=== PATIENT | female | born 1945 | race African-American/Black ===

== ENCOUNTER 2018-05-24 20:28 | Inpatient (IN) ==
--- NOTE | 2018-05-24 21:26 | Diag Imaging Result Doc PS360 ---
EXAM: CT HEAD W/O CONTRAST INDICATION: OLD INFARCT WITH DEFICIT OF LEFT NOW WITH NEW TECHNIQUE: This exam was performed using automated exposure control, adjustment of mA or kV according to patient size, and/or use of iterative reconstruction technique. COMPARISON: 05/23/2018 FINDINGS: There is stable multifocal encephalomalacia that is extensive in the right hemisphere. There is no definite acute infarct given the limited sensitivity of CT versus MRI. There is no discrete intracranial mass, mass effect, or intracranial hemorrhage. There is a stable right mastoid air cell effusion. Surrounding soft tissues and bony structures are essentially unremarkable, otherwise. IMPRESSION: Stable multifocal encephalomalacia that is severe on the right. No definite acute intracranial pathology by CT. Electronically signed by Papa Nolan 05/24/2018 9:24 PM
[2018-05-24 22:42] LABS: BASO# 0.01 X1000 (0.0-0.2); BASO% 0.1 % (0.0-0.8); EOS# 0.18 X1000 (0.0-0.7); EOS% 1.8 % (0.0-10.0); HEMATOCRIT 32.8 % (37.0-47.0); HEMOGLOBIN 10.6 g/dL (12.0-16.0); LYMPH# 2.24 X1000 (1.2-3.4); LYMPH% 22.8 % (20.5-51.1); MCHC 32.3 g/dL (33-37); MCV 89.6 FL (81-99); MONO# 1.23 X1000 (0.11-0.59); MONO% 12.5 % (1.7-9.3); MPV 10.7 FL (7.4-10.4); NEUT# 6.16 X1000 (1.4-6.5); NEUT% 62.8 % (42.2-75.2); PLT 265 X1000 (130-400); RBC 3.66 XMIL (4.2-5.4); RDW 12.8 % (11.5-14.5); WBC 9.82 X1000 (4.8-10.8)
[2018-05-24 22:50] LABS: INR 1.09
[2018-05-24 22:51] LABS: PTT 33.8 Seconds (22.3-41.8)
[2018-05-24 23:01] LABS: ALB/GLOB RATIO 1.2; ALBUMIN 3.6 g/dL (3.5-5.0); CALCIUM 9.2 mg/dL (8.8-10.2); CREATININE 3.3 mg/dL (0.5-0.9); POTASSIUM 3.9 mmol/L (3.5-5.1); TOTAL BILIRUBIN 0.31 mg/dL (0.20-1.00); TOTAL PROTEIN 6.7 g/dL (6.3-8.3)
[2018-05-24] MEDS ORDERED: NS 500 ML IV ONE (23:16)
[2018-05-25] MEDS ORDERED: ASPIRIN PR ONE (00:25)
--- NOTE | 2018-05-25 01:56 | PROVIDER DOCUMENTATION ---
This chart was entered by Pal Robert Scribe, acting as scribe for Hafsa Bryant DO. HPI-Neurological Disorder - General Chief Complaint: Altered Mental Status Stated Complaint: poss cva Time Seen by Provider: 05/24/18 20:54 Source: EMS Unable to obtain history due to:: altered Allergies/Adverse Reactions: Patient Allergies Allergy/AdvReac Type Severity Reaction Status Date / Time No Known Allergies Allergy Verified 01/16/14 11:12 Home Medications: Home Medication List Medication Instructions Recorded Confirmed Last Taken Type SIMVAstatin [Zocor] 20 mg PO HS 01/15/14 05/23/18 01/16/14 07:30 History Amlodipine [Norvasc] 5 mg PO DAILY #30 tab 02/22/17 05/23/18 Unknown Rx Estradiol Vaginal Cream [Estrace 1 applicator VAG DAILY 04/16/17 05/23/18 Unknown History Vaginal Cream] Losartan [Cozaar] 100 mg PO DAILY 04/16/17 05/23/18 Unknown History Metoprolol Succinate 1 tab PO DAILY 04/16/17 05/23/18 Unknown History Glimepiride 4 mg PO DAILY 05/30/17 05/23/18 Unknown History Levofloxacin [Levaquin] 750 mg PO DAILY 5 Days #5 tab 05/23/18 Unknown Rx - History of Present Illness-Neuro Nature of Presenting Problem: EMS reports pt has hx of 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 She was evaluated at that point for new onset R sided weakness and presumably has had another stroke. Per EMS the pt's family is concerned because of her R sided and generalized weakness and is requesting that she have an MRI. She is unable to answer questions except "yes" or "no". Severity: reports: mild Onset/Duration: reports: 2 days ago Timing: reports: still present Character of Altered Mental Status: reports: unchanged from baseline Any recent trauma/injury?: reports: none Character of Deficits: reports: new weakness (right side) New weakness or altered sensation location:: reports: RUE Cognitive Baseline: alert, oriented x3 Gait Baseline: unable to walk Review of Systems - Adult - REVIEW OF SYSTEMS - ADULT ROS:: unobtainable per condition Constitutional: denies: chills, fever Past History - Adult - PAST MEDICAL HISTORY-ADULT Review of Records: reports: Old Records Reviewed, Nursing Assessment Review, Medications Reviewed Major Childhood Illnesses: reports: denies history Cardiovascular: reports: HTN, hyperlipidemia Respiratory: reports: denies history Gastrointestinal: reports: denies history Obstetrical/Gynecological: reports: denies history Genitourinary: reports: denies history Musculoskeletal: reports: denies history Neurological: reports: denies history Endocrine/Immune: reports: Diabetes Other Conditions: reports: denies history - PRIOR SURGERIES/PROCEDURES Surgical/Procedure History: reports: none - IMMUNIZATION STATUS Childhood Immunizations: See Nurse Assessment Flu Vaccine: See Nurse Assessment - FAMILY HISTORY Family History: reviewed, not pertinent - SOCIAL HISTORY Smoking: non-smoker Living Situation: family Physical Exam- Neurological - Physical Exam-Neuro General Appearance: alert, no apparent distress Eye Exam: bilateral eye: normal inspection, PERRL HENMT: moist mucous membranes, normal ENT inspection, TMs normal, pharynx normal Head Injury: no evidence of injury. negative: active bleeding Neck: supple, normal inspection Respiratory: lungs clear, normal breath sounds, no pleuratic chest pain, no respiratory distress, no accessory muscle use Cardiovascular: normal peripheral pulses, regular rate, rhythm Abdominal Exam: non tender, soft Extremity: non-tender. 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 negative: normal speech Motor/Sensory: weak motor strength RUE, weak motor strength LUE, weak motor strength RLE, weak motor strength LLE Integumentary: normal color, normal turgor, warm/dry Psych/Mental Status: normal mood/affect, oriented x 3. negative: normal thought content, normal thought process Progress - PLAN OF CARE/RESULTS Progress/Plan/Lab Results: Vital Signs - 8 hr 05/24/18 21:41 05/24/18 21:49 05/24/18 21:50 Pulse Rate 99 H 97 H 94 H Respiratory Rate 34 H 25 H 22 Blood Pressure 143/90 O2 Sat by Pulse Oximetry 95 93 L 95 05/24/18 22:00 05/24/18 22:01 05/24/18 22:10 Pulse Rate 97 H 97 H 97 H Respiratory Rate 27 H 22 28 H Blood Pressure 146/98 O2 Sat by Pulse Oximetry 96 95 94 L 05/24/18 22:20 05/24/18 22:30 05/24/18 22:40 Pulse Rate 96 H 101 H 106 H Respiratory Rate 26 H 28 H 31 H Blood Pressure O2 Sat by Pulse Oximetry 96 95 97 05/24/18 22:50 05/24/18 23:00 05/24/18 23:01 Pulse Rate 102 H 104 H 105 H Respiratory Rate 28 H 30 H 27 H Blood Pressure 157/99 O2 Sat by Pulse Oximetry 96 95 94 L 05/24/18 23:10 05/24/18 23:20 05/24/18 23:30 Pulse Rate 105 H 103 H 104 H Respiratory Rate 19 12 26 H Blood Pressure O2 Sat by Pulse Oximetry 95 94 L 95 05/24/18 23:31 05/24/18 23:40 05/24/18 23:46 Pulse Rate 105 H 105 H 106 H Respiratory Rate 22 24 29 H Blood Pressure 155/102 155/102 O2 Sat by Pulse Oximetry 95 95 95 05/24/18 23:50 05/25/18 00:00 05/25/18 00:01 Pulse Rate 106 H 103 H 101 H Respiratory Rate 24 21 22 Blood Pressure 135/85 O2 Sat by Pulse Oximetry 95 95 94 L 05/25/18 00:10 05/25/18 00:20 05/25/18 00:30 Pulse Rate 101 H 101 H 101 H Respiratory Rate 24 23 27 H Blood Pressure O2 Sat by Pulse Oximetry 96 96 96 05/25/18 00:31 05/25/18 00:40 05/25/18 00:50 Pulse Rate 99 H 99 H 101 H Respiratory Rate 25 H 25 H 14 Blood Pressure 151/90 147/109 O2 Sat by Pulse Oximetry 96 96 93 L 05/25/18 01:00 05/25/18 01:01 05/25/18 01:10 Pulse Rate 90 90 87 Respiratory Rate 20 20 17 Blood Pressure 135/84 O2 Sat by Pulse Oximetry 96 96 96 05/25/18 01:20 Pulse Rate 95 H Respiratory Rate 25 H Blood Pressure O2 Sat by Pulse Oximetry 95 Laboratory Results - last 24 hr 05/24/18 05/24/18 05/24/18 21:52 22:20 22:20 WBC 9.82 RBC 3.66 L Hgb 10.6 L Hct 32.8 L MCV 89.6 MCH 29.0 MCHC 32.3 L RDW Std Deviation 12.8 Plt Count 265 MPV 10.7 H Immature Gran % (Auto) 0.0 Neut % (Auto) 62.8 Lymph % (Auto) 22.8 [place] % (Auto) 12.5 H Eos % (Auto) 1.8 Baso % (Auto) 0.1 Immature Gran # (Auto) 0.00 Neut # (Auto) 6.16 Lymph # (Auto) 2.24 [place] # (Auto) 1.23 H Eos # (Auto) 0.18 Baso # (Auto) 0.01 PT INR PTT (Actin FS) Sodium 147 H Potassium 3.9 Chloride 109 H Carbon Dioxide 23 L Anion Gap 15 BUN 37 H Creatinine 3.3 H Estimated GFR/1.73 m2 17 BUN/Creatinine Ratio 11 Glucose 103 POC Glucose 112 H Calculated Osmolality 301 Calcium 9.2 Total Bilirubin 0.31 AST 13 ALT 10 Alkaline Phosphatase 67 Troponin T Total Protein 6.7 Albumin 3.6 Globulin 3.1 Albumin/Globulin Ratio 1.2 05/24/18 05/24/18 22:20 22:20 WBC RBC Hgb Hct MCV MCH MCHC RDW Std Deviation Plt Count MPV Immature Gran % (Auto) Neut % (Auto) Lymph % (Auto) [place] % (Auto) Eos % (Auto) Baso % (Auto) Immature Gran # (Auto) Neut # (Auto) Lymph # (Auto) [place] # (Auto) Eos # (Auto) Baso # (Auto) PT 15.0 INR 1.09 PTT (Actin FS) 33.8 Sodium Potassium Chloride Carbon Dioxide Anion Gap BUN Creatinine Estimated GFR/1.73 m2 BUN/Creatinine Ratio Glucose POC Glucose Calculated Osmolality Calcium Total Bilirubin AST ALT Alkaline Phosphatase Troponin T 0.015 Total Protein Albumin Globulin Albumin/Globulin Ratio Orders Category Date Time Status Resuscitation Status Routine Care 05/25/18 00:33 Ordered Update & Confirm Home Medicati ROUTINE Care 05/25/18 00:[address] HEAD W/O CONTRAST [CT] Stat Exams 05/24/18 20:33 Completed CBC WITH ELECTRONIC DIFF [HEME] Stat Lab 05/24/18 22:20 Completed COMPREHENSIVE METABOLIC PANEL [CHEM] Stat Lab 05/24/18 22:20 Completed PROTIME WITH INR [COAG] Stat Lab 05/24/18 22:20 Completed PTT [COAG] Stat Lab 05/24/18 22:20 Completed TROPONIN T Stat Lab 05/24/18 22:20 Completed UA NIMS W/REFLEX CULT [URINALYSIS] Stat Lab 05/25/18 01:01 Ordered 0.9% Sodium Chloride Inj [Ns] 500 ml Med 05/24/18 23:16 Discontinued IV 999 mls/hr Aspirin Med 05/25/18 00:25 Discontinued 300 mg IN NOW ONE EKG [EKG] Stat Ther 05/24/18 21:03 Ordered Transfer/Admit Order [TRANSFER] Routine Transfer 05/25/18 00:27 Ordered Result Diagrams: 05/24/18 22:20 05/24/18 22:20 - EKG 1 Time of EKG reading by physician:: 21:13 EKG Read and Signed by:: Pal Pereyra EKG Interpretation (*Must complete 3 of following elements*): Abnormal Rate: 99 Rhythm: NSR QRS: LVH (with repolarization abnormalities) - CT/MRI 1 CT Study: Head Impression: Abnormal (EXAM: CT HEAD W/O CONTRAST INDICATION: OLD INFARCT WITH DEFICIT OF LEFT NOW WITH NEW TECHNIQUE: This exam was performed using automated exposure control, adjustment of mA or kV according to patient size, and/or use of iterative reconstruction technique. COMPARISON: 05/23/2018 FINDINGS: There is stable multifocal encephalomalacia that is extensive in the right hemisphere. There is no definite acute infarct given the limited sensitivity of CT versus MRI. There is no discrete intracranial mass, mass effect, or intracranial hemorrhage. There is a stable right mastoid air cell effusion. Surrounding soft tissues and bony structures are essentially unremarkable, otherwise. IMPRESSION: Stable multifocal encephalomalacia that is severe on the right. No definite acute intracranial pathology by CT. Electronically signed by Papa Nolan 05/24/2018 9:24 PM), See EMR Report Comparison with other Films: no changes (05/23/18) Departure - Departure This chart was documented by the indicated scribe, (Pal Robert Scribe) and accurately reflects the services I performed and decisions made by , Hafsa Bryant DO, as attested by the provider's signature.
[2018-05-25] MEDS ORDERED: TYLENOL PR PRN (02:22)
[2018-05-25 03:12] LABS: URINE SOURCE CATH
[2018-05-25 03:14] LABS: BILIRUBIN URINE NEGATIVE (NEGATIVE); BLOOD URINE MODERATE (NEGATIVE); COLOR YELLOW; GLUCOSE URINE NEGATIVE (NEGATIVE); KETONE URINE NEGATIVE (NEGATIVE); LEUKOCYTES URINE MODERATE (NEGATIVE); NITRITE URINE NEGATIVE (NEGATIVE); PROTEIN URINE 50 mg/dL (NEGATIVE); SP GRAVITY URINE 1.008; TURBIDITY URINE CLEAR (CLEAR); UROBILINOGEN URINE NORMAL (NORMAL)
[2018-05-25 03:16] LABS: UR EPITHELIAL CELLS <10 /HPF (<10); URINE BACTERIA NEGATIVE /HPF; URINE RBC <10 /HPF (<10)
[2018-05-25] MEDS ORDERED: ROCEPHIN 1 GM in NS 50 ML IV SCH (04:30)
[2018-05-25] MEDS: PROTONIX IV SCH (04:42)
[2018-05-25] MEDS: NS 1,000 ML IV SCH ×3 (04:43→18:58)
[2018-05-25] MEDS: ROCEPHIN 1 GM in NS 50 ML IV SCH (06:00)
--- NOTE | 2018-05-25 07:02 | HISTORY AND PHYSICAL ---
ADDENDUM PRIMARY CARE PHYSICIAN: Russell Mccord MD PLAN: Plan was discussed with MEDICAL SUPPORT ASSISTANT at bedside. HISTORY OF PRESENT ILLNESS: Ms. 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 Brought in yesterday with a questionable right-sided weakness. CT scan at that time was negative. Brought in again today because of progression of the right-sided weakness. When I went and evaluated the patient she was somewhat aphasic and required a lot of prompting to even say the names of her daughters. She would follow basic commands, but that was pretty much the limits of her ability to cooperate. PHYSICAL EXAMINATION: NEUROLOGIC: Notable for 2/4 power on both sides, i.e. left and right sides. She had somewhat of a flat affect. Patient is not verbal. She is only able to enunciate her 2 daughters' names at bedside, but that is about it. She will open her eyes when her name is called. CARDIORESPIRATORY EXAM: Notable for 3/6 systolic murmur with no particular radiation. Family tells me that this is old. ASSESSMENT AND PLAN: My assessment is that this patient probably has had a sudden recurrent stroke, now on the right side. This could also represent a possible embolic cerebrovascular accident, although not picked up by the CT scan done today. I recommend an MRI to confirm the possibility of an embolic cerebrovascular accident in multiple cerebral lobes or in the cerebellum. In this case, anticoagulation will be an option for now. The patient was not on antiplatelet therapy. There was no record that she was on aspirin or Plavix, and the family was not aware of this. I do surmise that it is possible that the patient may have been on these antiplatelet therapies in the past, but for some medical reason they may have been stopped. Family denies any bleeding. We will cautiously start her on aspirin rectally. Of note, also her BUN and creatinine are elevated which would suggest that her oral intake has declined. This is further buttressed by the fact that her sodium is elevated, and we will start her on normal saline. The rest of the plan of care was discussed with the nurse practitioner. Once the patient can have oral intake, high dose statins should be entertained. Echocardiogram, MRI and carotid Doppler studies will be ordered. Neurology, Speech Therapy and Physical Therapy consults will also be obtained. cc: Lupe Aranda MD
--- NOTE | 2018-05-25 07:37 | EKG Report ---
Test Performed on : 05/24/2018 9:31:28 PM Test Reason : weakness. Blood Pressure : / mmHG Vent. Rate : 099 BPM Atrial Rate : 099 BPM P-R Int : 120 ms QRS Dur : 082 ms QT Int : 380 ms P-R-T Axes : 034 002 097 degrees QTc Int : 487 ms Normal sinus rhythm. Left ventricular hypertrophy with repolarization abnormality Abnormal ECG When compared with ECG of 30-MAY-2017 16:09, No significant change was found Unconfirmed Result
[2018-05-25 07:39] LABS: BASO# 0.02 X1000 (0.0-0.2); BASO% 0.3 % (0.0-0.8); EOS# 0.15 X1000 (0.0-0.7); EOS% 1.9 % (0.0-10.0); HEMATOCRIT 31.8 % (37.0-47.0); HEMOGLOBIN 10.2 g/dL (12.0-16.0); LYMPH# 2.02 X1000 (1.2-3.4); LYMPH% 25.3 % (20.5-51.1); MCH 29.1 PG (27-31); MCHC 32.1 g/dL (33-37); MCV 90.9 FL (81-99); MONO# 1.16 X1000 (0.11-0.59); MONO% 14.5 % (1.7-9.3); MPV 10.9 FL (7.4-10.4); NEUT# 4.65 X1000 (1.4-6.5); PLT 240 X1000 (130-400); RDW 12.9 % (11.5-14.5)
--- NOTE | 2018-05-25 08:22 | HISTORY AND PHYSICAL ---
PRIMARY CARE PROVIDER: Dr. Last at [facility]. CHIEF COMPLAINT: Stroke-like symptoms. Altered mental status. HISTORY OF PRESENT ILLNESS: Ms. Florence is a 73-year-old, -Nepalese female, who was previously seen in our emergency department early Thursday morning. At that time, it was reported that she was having some increased weakness, confusion, and was nonverbal at the time of her visit in the ER. She was diagnosed with a urinary tract infection. She was given a prescription for Levaquin and discharged back to the residential. The patient's family stated that since returning to the residential that the patient has had worsening symptoms. That her confusion has worsened. She is having periods of aphasia at times. She is having new onset right-sided weakness with motor control. And has not been eating or drinking. I did have her brought back to the ER for further evaluation. The patient was able to tell us her name and she did tell us her daughter's name who is present at the bedside. Though she thought she was still at the residential and thought the month was April of 2018. She was able to answer some simple questions by nodding her head Yes or No. She did state that her stomach did hurt, though other than this did not and has not been able to report any other symptoms. Upon evaluation in the ER, the patient's CT of the head without contrast though the radiologist noted that there was stable multifocal encephalomalacia that is severe on the right, though no definite acute intracranial pathology. It does appear the patient is a little dehydrated. She does have some chronic kidney disease though at this time her creatinine is 3.3 where normally her baseline is anywhere from 1.8 to 2. Her urinalysis is still showing some blood as well as moderate leukocytes and 10-20 WBC. EKG performed in the ER did show normal sinus rhythm with a left ventricular hypertrophy at a rate of 99 with a QTc of 487. At this time, given the patient's worsening symptoms she will be admitted for further treatment and evaluation of a CVA. REVIEW OF SYSTEMS: Unfortunately at this time due to the patient's current condition and mentation, a complete review of systems was unable to be performed. PAST MEDICAL HISTORY: 1. History of previous CVAs for which she initially did have a right-sided stroke that affected her right side. The patient's family stated that normally she is not able to move her left side at all, though the patient did have some movement in her left arm and leg during our examination. 2. Hypertension. 3. Dyslipidemia. 4. Diabetes mellitus type 2. 5. Pseudobulbar affect. 6. COPD. 7. Asthma. 8. Vascular dementia without behavioral disturbance. 9. Dysphasia. PAST SURGICAL HISTORY: Patient has no known history of previous surgeries. SOCIAL HISTORY: The patient is a former smoker. Her family states that she quit smoking approximately [id number] and has been given a nicotine patch. There is no known alcohol or illicit drug use. She is a permanent resident at [facility]. She does normally get around in a wheelchair and according to her family able to have minimal assistance when transferring from the bed to the wheelchair. FAMILY HISTORY: Her mother, father, brother and sisters all have a history of having strokes, diabetes mellitus and hypertension. ALLERGIES: The patient has no known allergies. HOME MEDICATIONS: The patient's home medication list has not been reconciled and placed in the computer though according to her residential EMR that was sent with her she takes: 1. Amlodipine 5 mg tablet one p.o. daily. 2. Colace 100 mg one p.o. b.i.d. 3. Depakote Sprinkles capsule delayed release 125 mg one capsule b.i.d. 4. Dextromethorphan and quinidine one capsule by mouth b.i.d. for pseudobulbar affect. 5. Flonase one spray in each nostril b.i.d. 6. Levaquin one tablet p.o. daily for a UTI. This was just prescribed on 05/23/2018. 7. Losartan 100 mg one tablet p.o. daily. 8. Metoprolol succinate extended release 50 mg one tablet p.o. daily. 9. MiraLAX powder 17 g by mouth once daily for constipation. 10.Nicotine patch q.24 hours 14 mg transdermally. 11.Probiotic one capsule by mouth in the evening. 12.Sennosides-Docusate Sodium tablet 8.6-50 mg one tablet p.o. daily. 13.Simvastatin 20 mg one tablet p.o. at bedtime. 14.Tylenol 1000 mg p.o. q.8 hours for pain. 15.Zoloft 50 mg one tablet p.o. daily. DIAGNOSTIC DATA/LABORATORY RESULTS: 1. White blood cell count is 9.82, hemoglobin 10.6, hematocrit 32.8, platelet count 265,000. 2. PT 15, INR 1.09, PTT 33.8. 3. Sodium 147, potassium 3.9, chloride 109, serum bicarb is 23, BUN 37, creatinine 3.3 with a GFR of 17, glucose 103, calcium 9.2. 4. Liver function tests within normal limits. 5. Troponin 0.015. 6. Urinalysis was obtained via catheter and positive for protein, moderate blood, leukocytes, and 10-20 white blood cells. 7. EKG showed normal sinus rhythm with left ventricular hypertrophy at rate of 99 with a QTc of 487. 8. CT of the head without contrast showed stable multifocal and encephalomalacia that is severe on the right though there was no definite acute intracranial pathology noted. 9. Chest x-ray one view was performed on 05/23/2018 which showed no acute abnormalities. PHYSICAL EXAM: VITAL SIGNS: Temperature 98.1 degrees Fahrenheit, heart rate 99, respirations 20, blood pressure 151/90. Oxygen saturation is 96% on room air. GENERAL: Ms. Florence is an elderly, 73-year-old, -N[place]alese female. She was resting on the ER stretcher. She was in no acute distress. She is awake and alert and oriented to person. HEENT: Head is normocephalic and atraumatic. Pupils are equal, round and reactive to light were 3 mL bilaterally and brisk. Oral mucosa is slightly dry. Oropharynx is clear. NECK: Supple. Trachea is midline. No carotid bruits noted. CARDIOVASCULAR: The patient has S1, S2 noted. There is a murmur present as well. There are no other gallops or rubs appreciated. PULMONARY: The patient has symmetrical chest expansion bilaterally. Lungs clear to auscultation in bilateral full griffin. ABDOMEN: Soft, nondistended. The patient did not have any facial grimacing, guarding, or localization of pain upon palpation. Bowel sounds were present in all four quadrants and normoactive. EXTREMITIES: No cyanosis or edema noted. Radial pulse and pedal pulses were 2+ bilaterally. INTEGUMENTARY: The patient's skin color is normal for her race. It is dry and intact. NEUROLOGIC: The patient is alert and oriented to person only at this time. She though that she was at [facility] and that it was April 2018. The patient has been experiencing some asphasia, though this does seem transient. She was able to answer some questions by shaking her head Yes or No. Though other than this is not able to communicate much. She is able to follow some simple commands. The patient does have movement noted in all extremities, though normally her family states that she has paralysis on the left, though at this time she does have some movement noted to her left upper and lower extremities. The patient does have limited movement noted on the right. She was able to squeeze my hand with her right hand but not her left. Though other than this her neurologic exam at this time is slightly limited due to her current condition and mentation. ASSESSMENT AND PLAN: 1. Cerebrovascular accident. The patient does have a history of having hemiplegia and hemiparesis following cerebral infarction affecting her left nondominant side. Though at this time she does appear to have some movement in her left upper and lower extremities. The patient family states this is of new onset. Normally the patient's good side is her right side, which she is now having difficulty with weakness and movement in her right upper and lower extremities. She has also been having periods of aphasia and is only alert and oriented to person at this time. We have placed orders for the patient to receive an MRI of the brain without contrast in the morning. We have ordered carotid ultrasound as well as an echocardiogram. We will perform a lipid profile in the morning as well. We will place a consult with Neurology and we will await their evaluation and further recommendations for management. We will place her on continuous cardiac telemetry. We will do frequent vital signs and neuro checks. She will be placed on aspiration precautions. The patient will be N.P.O. until swallow evaluation has been performed. And we will monitor her neurologic status closely. 2. Fluid volume depletion. This is likely secondary to the patient's change in mentation. And her family reported that she had not been eating and drinking at the residential. We will provide some gentle fluid hydration with normal saline at 85 mL/h. We will continue to follow. 3. Acute on chronic kidney disease. The patient does appear to have baseline creatinine of 1.8 to 2. At this time, her creatinine is 3.3. This is likely secondary to her fluid volume depletion. We will continue with fluid replenishment as mentioned above. We with avoid nephrotoxic medications and mainly dose medicines as necessary. 4. Urinary tract infection. The patient was given a prescription for Levaquin though at this time we are not sure this has been started. We will place her with antibiotics coverage. A urine culture has been ordered. We will await those results and continue to follow. 5. Hypertension. At this time, given the patient's possible CVA, we will allow for some permissive hypertension. We will closely monitor and implement antihypertensives if necessary. 6. Dyslipidemia. We will continue the patient's atorvastatin, though at this time she is N.P.O. until a swallowing screen is performed. 7. Diabetes mellitus type 2. Given that the patient is N.P.O. and has not been eating and drinking, we will hold her diabetic medications. We will monitor her finger-stick blood sugars closely every four hours. 8. Deep venous thrombosis prophylaxis. She has been provided with SCDs. The patient has been placed on the Medical floor with telemetry. She will have vital signs and neuro checks q.4 hours. We will do strict intake and output. She will be N.P.O. until a swallow evaluation is performed. We will repeat a CBC and CMP in the morning, as well as series of troponins. The patient's troponin was a little elevated at 0.015 though she does have an acute kidney injury present. She had not reported any chest pain, though we will continue to monitor this. Further orders and recommendations pending hospital course, diagnostic studies and physician evaluation. Dictated by RAMON Alvarez for Lupe Aradna MD cc: Lupe Aranda MD [facility].
[2018-05-25 08:23] LABS: ALBUMIN 3.4 g/dL (3.5-5.0); CALCIUM 8.4 mg/dL (8.8-10.2); POTASSIUM 3.6 mmol/L (3.5-5.1); TOTAL BILIRUBIN 0.41 mg/dL (0.20-1.00); TOTAL PROTEIN 6.8 g/dL (6.3-8.3)
--- NOTE | 2018-05-25 12:57 | Diag Imaging Result Doc PS360 ---
EXAM: MRI BRAIN W/O CONTRAST 05/25/2018 HISTORY: CVA TECHNIQUE: T1 sagittal, T1 axial, T2, FLAIR, DWI axial and coronal gradient echo. COMMENT: There is patchy restricted diffusion in the cortex and subcortical white matter in the watershed zone of the posterior and mid left hemisphere as well as in the posterior subcortical white matter of the right parietal lobe. There is extensive increased T2-weighted signal intensity throughout much of the posterior right hemisphere including the occipital lobe and portions of the temporal posterior frontal and parietal lobes. There is patchy increased T2-weighted signal intensity in the portions of the left hemisphere described above. There are old lacunae present in the turner radiata region on the right and the external capsule anteriorly and superiorly on the left. There is no evidence of bleed or abnormal extra-axial fluid collection. Compared to the previous examination of 04/16/2017 the encephalomalacic changes on the right are worse and the diffusion abnormalities on the left were not present previously. The subdural hematoma which was present at the time the previous study is no longer visible. There is hemosiderin deposition in the basal ganglia as there was previously. There is some apparent deposition in the parietal subcutaneous cortical white matter which is not appreciable on the previous study. This may be due to petechial hemorrhage in the infarct zone. IMPRESSION: Multiple small foci of infarction in the cortex and subcortical zones of both parietal lobes as described. Given the bilateral distribution, the possibility of emboli from the aorta or heart should be considered. This report was discussed with Carltoa on 05/25/2018 at 1255 and was readback. Electronically signed by Vaughn Quintanilla 05/25/2018 12:55 PM
--- NOTE | 2018-05-25 14:34 | CONSULTATION ---
DATE OF CONSULTATION: 05/25/2018 HISTORY OF PRESENT ILLNESS: Ms. Florence is 73 years old, and there is imaging evidence of recent dominant left hemisphere infarction superimposed on old ischemic changes in the right hemisphere. There is question of some extension or enlargement of the old right hemisphere ischemic change compared to prior scan. I have reviewed the notes sent from [facility], which consist mainly of the emergency room record here a few days ago. There is apparent past history of stroke causing chronic left hemiplegia, which has been significant and not changed recently. She seemed different neurologically a few days ago and was brought for evaluation. There was question of dysphasia which would be new and right hemiparesis which would be new. There was not report of altered awareness or unconsciousness. There was not report of headache. Brain MRI done without contrast showed old right parietal changes which were more prominent than on April 2017 scan and there is small area of restricted diffusion on the right on today's scan. The MRI scan today also showed left parietal white matter changes with restricted diffusion. There were prior brain MRI scans done without contrast 04/16/2017 and 01/17/2014. The 07/2017 brain MRA reported motion artifact and raised question of posterior cerebral and middle cerebral stenoses bilaterally. Cervical MRA same date was unremarkable. MEDICATION: Home medicine list includes divalproex, Nuedexta, sertraline, several others. VITAL SIGNS: She has been afebrile this admission. Systolic blood pressures have ranged 130s to 160. PHYSICAL EXAMINATION: On exam, Ms. Florence is supine, awake, alert, attentive. She had some appropriate conversation with me. She had some pauses and hesitations consistent with word- finding problems. On bedside language testing, she had difficulty with commands requiring right/left distinction, digit distinction, calculation. She did well with simple naming, but had a little bit of trouble naming parts of objects. She did well with simple repeating, but had trouble repeating pronouns. She did not name the President correctly. She did not identify the hospital correctly by name. Speech is not significantly dysarthric. She has full right visual field and counted fingers in the right field consistently correctly. On the left, responses were much more inconsistent. Facial motility is diminished bilaterally. Left nasolabial fold is less prominent than the right. Tongue is midline. Gag is intact. She has apparent chronic paralysis of the left arm with discomfort on passive left wrist and finger extension. She moved her left leg minimally. There was more brisk left leg movement in withdrawal from noxious stimulation. She used her right arm purposefully. Tone is increased in the right arm. She did rapid alternating movements very, very slowly with the right hand. She was not able to bring right finger to nose. She reports good pinprick and light touch appreciation over the right hand compared to the left but responses were inconsistent on further testing of sensation over the limbs. I did not test her gait. Plantar response is extensor bilaterally. DIAGNOSTIC STUDIES: Lab work this admission shows anemia, mildly elevated BUN and creatinine, mildly elevated blood sugar. Echocardiogram is ordered. IMPRESSION: 1. Apparent moderate right hemiparesis and mild dysphasia. These are reported to be new deficits, consistent with the MRI evidence of restricted diffusion and acute ischemic change in the dominant left hemisphere. 2. There is left hemiplegia, which appears to be old. I do not think that has changed significantly from baseline. The imaging findings are noted, and the area of restricted diffusion in the right hemisphere is small, consistent with acute right hemisphere infarction. The much larger area of encephalomalacia in the right hemisphere appears to be old, some posterior changes present since stroke about 13 months ago, and some parietal encephalomalacia apparently developing after the event 13 months ago, but also old now. 3. I suspect she has a baseline cognitive impairment. She has risk factors for vascular dementia. I do not see cholinesterase inhibitor or memantine on current medicine list. I do not know if these have been tried in the past or not. 4. Some concern for prolonged QT with combination of sertraline and quinidine component of Nuedexta. Also some concern for serotonin syndrome with sertraline and dextromethorphan component of Nuedexta. I do not know how long she has been taking Nuedexta. These potential medication interactions are relatively low worry. Further plans will depend on her clinical course and echocardiogram report. I do not have any urgent suggestion from neurologic standpoint right now. Vascular status is likely not a lot different since the cervical and brain MRA scans done 13 months ago, but we might repeat vascular imaging for update. I would not recommend CT angiogram because of her recently slightly worsened renal function. We can manage with ultrasound, MRA, or wait until renal function improves and consider CTA. Thanks for asking Neurology to see Ms. Florence. cc: Susana Pham III, MD MTDD
--- NOTE | 2018-05-25 16:50 | PROGRESS NOTE ---
DATE: 05/25/2018 Ms. Florence presented on 05/25/2018. Patient of Dr. Mccord. SUBJECTIVE: A 73-year-old recently with CVAs in the right cerebral hemisphere. She has resultant left-sided hemiparesis for a year. Brought in yesterday with questionable right -sided weakness. CT scan at that time was negative. Brought in again with progressive right- sided weakness. When evaluated the patient was somewhat aphasic, required a lot of prompting to say names of her daughters. She would follow basic commands but pretty much limits her ability to cooperate. The patient had an MRI today, multiple small foci, infarction in the cortex and subcortical zones, both parietal lobes described given the bilateral distribution, possibility of emboli from heart should be considered. On exam today she seems to be doing better. They did do an echocardiogram; results are pending. OBJECTIVE: Vital signs: She remains afebrile. Pulse 99, respirations 22, blood pressure 138/76. HEENT: Pupils are equal and round. Lungs: Clear in all lung griffin. Cardiovascular: Regular rhythm and rate without murmur or S3. Abdomen: Soft. Skin: Warm and dry. LABORATORY: Review of lab from yesterday and this morning, white count 8,000, hematocrit 31, platelet count 240,000. Chemistries: Sodium 147, potassium 3.6, chloride 110, BUN 34, creatinine 3.0. Creatinine was 3.4 when she presented. ASSESSMENT AND PLAN: 1. Apparent moderate right hemiparesis, some mild dysphagia. These are reported to be new deficits, consistent with MRI evidence of restricted diffusion or acute ischemic change in the dominant left hemisphere. 2. Left hemiplegia which apparently is old. Dr. Pham has evaluated and does not feel like that has changed from baseline. There are areas of restricted diffusion in the right hemisphere but these areas are small, consistent with acute right hemisphere infarction. Much larger area of encephalomalacia in the right hemisphere, appears to be old. Some posterior changes present since a stroke about 13 months ago and some parietal encephalomalacia apparently developed after the event 13 months ago. 3. There is a suspicion of cognitive impairment and probably multi-infarct component as well. 4. There is some concern about prolonged QT on the EKG. She is on sertraline and quinidine which is a component of the Nuedexta. Concern for serotonin syndrome from sertraline and dextromethorphan component of Nuedexta. Not sure how long she has been taking the Nuedexta. We are holding the Nuedexta right now. We are giving her some ceftriaxone 1 g q.24 hours, aspirin 300 mg a day. 5. Feel that she had some fluid volume depletion when she presented and so we have given her some fluid. 6. She had acute on chronic kidney disease. Baseline creatinine is 1.8. She is at 3.3, so will see if we can improve on that. 7. We are treating for a urinary tract infection. The patient had a prescription for Levaquin but I do not think that was started, so she is on ceftriaxone. 8. Diabetes mellitus type 2. We will follow her pattern sugars. cc: Alvarado Olvera MD MTDD
--- NOTE | 2018-05-25 17:33 | ECHO REPORT ---
ORDER DATE: 05/25/2018 INDICATION: A 73-year-old female with a stroke, heart murmur. M-MODE MEASUREMENTS: Left ventricle end diastole: 3.4. Left ventricle end systole: 1.7. Posterior wall: 1.3. Interventricular septum: 2.1. Left atrium: 3.2. Aortic root: 2.6. SUMMARY OF 2-DIMENSIONAL IMAGIN. Left ventricular function shows a hyperdynamic left ventricle. There is also asymmetric hypertrophy of the left ventricle. The ejection fraction is 75% to 80%. 2. There is evidence of systolic anterior motion of the mitral valve with a gradient measured up to 31 mmHg across the outflow tract of the left ventricle. 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 3. Pulsed wave Doppler of mitral inflow shows reversal of the E/A ratio. 4. Tissue Doppler of septal and lateral mitral annulus averages 5 cm, indicating impairment of ventricular relaxation. That is also consistent with hypertrophic cardiomyopathy. 5. The aortic valve opens normally. There is no aortic stenosis. Color flow mapping is really unremarkable. There may be a trivial degree of aortic regurgitation. 6. The pulmonic valve is unremarkable. 7. The tricuspid valve shows a mild degree of regurgitation. Pulmonary pressure estimated at 20 mmHg. 8. There is no pericardial effusion. No masses, no thrombus. 9. The left atrium appears to be moderately enlarged. SUMMARY: This study shows: 1. Hyperdynamic left ventricle with asymmetric hypertrophy of the interventricular septum with systolic anterior motion of the mitral valve and a maximum gradient of 31 mmHg across the outflow tract of the left ventricle, suggesting that this is a case of obstructive hypertrophic cardiomyopathy of at least mild degree. 2 The aortic valve shows no evidence of any significant abnormality. 3. The mitral valve is unremarkable. 4. There is impaired left ventricular relaxation/early diastolic dysfunction. 5. Pulmonary pressure is normal. Clinical correlation is strongly recommended. cc: Riaz Whiting MD
--- NOTE | 2018-05-25 18:21 | Carotid Study ---
DATE: 05/25/2018 PROCEDURE: Carotid duplex study. REFERRING PHYSICIAN: Dr. Aranda. INTERPRETING PHYSICIAN: Dr. Grant Cleveland. TECH: Jake. INDICATIONS: Stroke. OBSERVED DATA RIGHT LEFT Brachial Blood Pressure Carotid Pulse Bruits: Carotid/Sub DIAGRAM OF ULTRASOUND IMAGING R L RIGHT INT EXT INT EXT LEFT Stevie (cm/s) Stevie (cm/s) Subclavian 55/5 Subclavian 105/7 CCA Proximal 36/5 CCA Proximal 45/10 CCA Distal 23/6 CCA Distal 35/11 Bulb 36/4 Bulb 31/9 ICA Proximal 18/10 ICA Proximal 18/10 ICA Mid 43/15 ICA Mid 31/20 ICA Distal 42/17 ICA Distal 53/30 ECA 49/6 ECA 41/5 Vertebral 78/19 Vertebral 30/13 ICA/CCA Ratio 1.2 ICA/CCA Ratio 1.2 % Stenosis 0-39% % Stenosis 0-39% FINDINGS: There is mild bilateral plaque of the carotid bulbs without a hemodynamically significant stenosis. There is antegrade vertebral flow bilaterally. PHYSICIAN INTERPRETATION: Unremarkable carotid imaging study. This is unchanged from the prior study on 01/16/2014. cc: Grant Cleveland MD
[2018-05-25] MEDS: ZOFRAN IV PRN (20:57)
[2018-05-26] MEDS: ASPIRIN PR SCH (01:46)
[2018-05-26] MEDS: ROCEPHIN 1 GM in NS 50 ML IV SCH (05:30)
[2018-05-26] MEDS: PROTONIX IV SCH (05:30)
--- NOTE | 2018-05-26 11:33 | PROGRESS NOTE ---
DATE: 05/26/2018 SUBJECTIVE: Ms. Florence reports no headache and no new problems. Her echocardiogram showed no thrombus. OBJECTIVE: On exam, she continues awake and alert. She is attentive. Speech is not significantly dysarthric, but she has occasional word-finding problems. She has increased tone and paralysis in the left arm, no change since yesterday. In the right arm, tone is increased and she did rapid alternating movements very slowly with the right arm. She was very slow with right [id number] and did not complete that. She reports good light touch and pinprick appreciation over the right hand. IMPRESSION: 1. New right hemiparesis and mild dysphasia. Clinically, deficit seems stable compared to yesterday. 2. Old left hemiplegia with MRI findings as reviewed. 3. Reported baseline cognitive impairment. I think this contributes significantly to her difficulty with communication and her ability to provide history. Dementia also would be a significant factor in considering management of acute stroke, favoring more conservative management. I would continue aspirin, continue permitting moderate hypertension for another day or so, resume statin unless there is a medical contraindication. Thanks for asking Neurology to see Ms. Florence. cc: Susana Pham III, MD [facility]
--- NOTE | 2018-05-26 14:10 | PROGRESS NOTE ---
DATE: 05/26/2018 SUBJECTIVE: Ms. Florence is feeling better. A little stronger. She is awake and alert. No complaints of pain. OBJECTIVE: Vital Signs: Remains afebrile. Temperature 97.9, pulse 89, respirations 18, blood pressure 150/91. Eyes: Pupils are equal and round. Lungs: Clear in all lung griffin. Cardiovascular: Regular rhythm and rate without murmur or S3. Abdomen: Soft. Skin: Warm and dry. DIAGNOSTICS: Urine output 720 mL. Blood sugars 144, 106, 230. ASSESSMENT/PLAN: 1. New right hemiparesis, mild dysphagia. Clinically appears to be stable. 2. Old left hemiplegia. MRI findings were reviewed. Dr. Pham following. 3. Report of baseline cognitive impairment. Dr. Pham feels this contributes to her trouble with communication. So, continue conservative adjuvant treatment. Continue aspirin, permitting moderate hypertension. 4. Diabetes mellitus type 2. Sugars appear under fairly good control. 5. She presented with some fluid volume depletion. 6. Acute on chronic kidney disease. Note that creatinine is down to 3.0. We will check another creatinine tomorrow. 7. Check another CBC. She has normocytic anemia as well that we are following. 8. She is a long-term resident at [facility]. So, I would like her renal function to improve a little more and hopefully we can get her back to [facility] by the end of the week. cc: Alvarado Olvera MD
[2018-05-27] MEDS: ASPIRIN PR SCH (00:11)
[2018-05-27] MEDS: PROTONIX IV SCH (04:59)
[2018-05-27] MEDS: SODIUM CHLORIDE 0.9% INJ SCH (04:59)
[2018-05-27] MEDS: ROCEPHIN 1 GM in NS 50 ML IV SCH (04:59)
[2018-05-27 07:41] LABS: BASO# 0.02 X1000 (0.0-0.2); BASO% 0.3 % (0.0-0.8); EOS# 0.34 X1000 (0.0-0.7); EOS% 4.3 % (0.0-10.0); HEMATOCRIT 32.6 % (37.0-47.0); HEMOGLOBIN 10.6 g/dL (12.0-16.0); LYMPH% 22.6 % (20.5-51.1); MCH 29.3 PG (27-31); MCHC 32.5 g/dL (33-37); MCV 90.1 FL (81-99); MONO# 0.97 X1000 (0.11-0.59); MONO% 12.2 % (1.7-9.3); MPV 10.5 FL (7.4-10.4); NEUT# 4.84 X1000 (1.4-6.5); NEUT% 60.6 % (42.2-75.2); PLT 283 X1000 (130-400); RBC 3.62 XMIL (4.2-5.4); RDW 12.5 % (11.5-14.5); WBC 7.97 X1000 (4.8-10.8)
[2018-05-27 07:58] LABS: CALCIUM 9.1 mg/dL (8.8-10.2); CREATININE 1.8 mg/dL (0.5-0.9); POTASSIUM 3.6 mmol/L (3.5-5.1)
--- NOTE | 2018-05-27 11:22 | PROGRESS NOTE ---
DATE: 05/27/2018 Ms. Florence is awake, alert, attentive. She seems more spontaneous today. Speech is not dysarthric. Language function is a little bit improved on brief bedside testing. She followed simple commands and she followed some commands requiring digit distinction better today. Her right hemiparesis is about the same as yesterday. Left arm paralysis is unchanged. IMPRESSION: Stable neurologically, following recent onset right hemiparesis with dysphasia. There is old left hemiplegia. Imaging showed minimal acute restricted diffusion in the right hemisphere but much more prominent restricted diffusion changes across the left hemisphere. PLAN: In light of her age and deficits, I do not think she is a candidate for aggressive intervention. I would continue daily aspirin, resume statin unless contraindicated, begin treating blood pressure cautiously. Okay from a neurology standpoint to return to her facility. Thanks for asking neurology to see Ms. Florence. cc: MD SALVATORE Tovra III
--- NOTE | 2018-05-27 13:44 | PROGRESS NOTE ---
DATE: 05/27/2018 SUBJECTIVE: Ms. Florence is awake and alert, comfortable. No complaints. Breathing comfortably. OBJECTIVE: Vital Signs: Remains afebrile, temperature 98.2 degrees, pulse 103, respirations 18, blood pressure 169/99. HEENT: Pupils are equal and round. Lungs: Clear in all lung griffin. Cardiovascular: Regular rhythm and rate without murmur or S3. Abdomen: Soft. Skin: Warm and dry. Output: Urine output is 1300 mL. DIAGNOSTIC STUDIES: Blood sugar 99, 111, and 206. ASSESSMENT AND PLAN: 1. Stable neurologically following recent onset of right hemiparesis and dysphagia. There is an old left hemiplegia. Imaging showed minimal acute restricted diffusion in the right hemisphere, but much more prominent restricted diffusion changes across the left hemisphere. Because of her age, she is not a candidate for aggressive intervention so we will continue her aspirin and statin. She seems to be stable. Hopefully can go to rehabilitation soon. 2. Reported baseline cognitive impairment. Consider more aggressive treatment later. 3. Diabetes mellitus, type 2. Sugar is under good control. 4. Volume status. Looks good. 5. Chronic kidney disease. Serum creatinine is 1.8 which is improved. She was admitted, it was 3.3. We will continue present orders. Awaiting a rehabilitation opportunity. We have her on ceftriaxone which she has had since the 12th, 1 g q.24 h., and I think that was kind of empirically. We could check a chest x-ray today. I probably will stop that. cc: Alvarado Olvera MD
--- NOTE | 2018-05-27 14:51 | Diag Imaging Result Doc PS360 ---
CHEST-PORTABLE - 05/27/2018 INDICATION: pneumonia COMPARISON: 05/23/2018 FINDINGS: There are numerous stable calcified granulomas bilaterally. The lungs are normally expanded and clear. Heart size and mediastinal contours are normal. No pneumothorax or pleural effusion. IMPRESSION: Negative exam. Electronically signed by Harris Sanchez 05/27/2018 2:49 PM
[2018-05-28] MEDS: ASPIRIN PR SCH (00:48)
[2018-05-28] MEDS: ROCEPHIN 1 GM in NS 50 ML IV SCH (04:00)
[2018-05-28] MEDS: PROTONIX IV SCH (04:00)
--- NOTE | 2018-05-28 12:34 | PROGRESS NOTE ---
DATE: 05/28/2018 Ms. Florence reports no headache and no new problems. On exam, she is awake and alert. She was attentive to me while I was at the bedside. She followed simple commands, but did not follow complicated commands. She did not do as well today with commands requiring digit distinction as yesterday, but did well with naming objects and naming parts of objects today. Her right hemiparesis is the same as yesterday. Left hemiplegia persists. No new suggestions from Neurology. Thanks for asking us to see Ms. Florence. cc: MD SALVATORE Tovar III
--- NOTE | 2018-05-28 16:30 | PROGRESS NOTE ---
DATE: 05/28/2018 HISTORY OF PRESENT ILLNESS: Ms. Florence is feeling better, a little stronger and eating well. Her bowels are moving well. I think she is ready go back to [facility], but I think she would like to continue her progress and see how we do. I think we will aim for Thursday. OBJECTIVE: Vital Signs: Temperature 98.2 degrees, pulse 104, respirations 18, blood pressure 172/99. HEENT: Pupils are equal and round. Lungs: Clear in all lung griffin. Cardiovascular: Regular rhythm and rate without murmur or S3. Abdomen: Soft. Skin: Warm and dry. Blood Sugars: 147, 134, 123. ASSESSMENT AND PLAN: 1. She is very attentive, follows commands. Carries on a conversation. Seems to be doing well. Making progress. Her right hemiparesis is the same. Her left hemiplegia persists. Hope to get her back to [facility] on Thursday. We will continue physical therapy and occupational therapy. 2. Baseline cognitive impairment. It is difficult to know where we are with that, but she seems to me a little more awake and alert every day for this last week. 3. Diabetes mellitus type 2. Sugars under good control. 4. Volume status looks good. 5. Chronic kidney disease. Serum creatinine I think is still improving, so we will continue. We will check electrolytes again tomorrow. Her last creatinine was 1.8. Blood sugars have been 112, 115, 111. cc: Alvarado Olvera MD
[2018-05-29] MEDS: ASPIRIN PR SCH (02:11)
--- NOTE | 2018-05-29 02:40 | DISCHARGE SUMMARY ---
ADMISSION DATE: 05/25/2018 DISCHARGE DATE: 05/28/2018 HISTORY AND HOSPITAL COURSE: This is a 73-year-old, followed by Dr. Neeraj Last over at [facility], and the primary care physician is Dr. Russell Mccord. A 73-year-old, who had recurrent CVAs in the right cerebral hemisphere, resulted in left-sided hemiparesis over a year. Brought in. Questionable right-sided weakness. CT scan at that time was negative. Brought again on 05/25/2018 for progression of right-sided weakness. Admitted to the hospital. Good side was the right side, but she was having difficulty with weakness and movement of right upper and lower extremities, also having periods of aphasia and trouble speaking. Was only alert, but she was oriented to person at the time they brought her in, not to place or time. She did appear to be volume depleted. She had [id number] kidney disease. We did give her some fluid and treat her for a possible urinary tract infection. Carotid Doppler study was done on 05/25. There was mild bilateral plaque in the carotid bulbs, but unremarkable. No sign of significant stenosis. There was antegrade flow bilaterally. cc: Alvarado Olvera MD
[2018-05-29] MEDS: PROTONIX IV SCH (04:30)
[2018-05-29] MEDS: ROCEPHIN 1 GM in NS 50 ML IV SCH (04:30)
[2018-05-29] MEDS: SODIUM CHLORIDE 0.9% INJ SCH (04:30)
[2018-05-29 07:40] LABS: CALCIUM 8.7 mg/dL (8.8-10.2); CREATININE 2.1 mg/dL (0.5-0.9); POTASSIUM 3.3 mmol/L (3.5-5.1)
--- NOTE | 2018-05-29 11:39 | PROGRESS NOTE ---
DATE: 05/29/2018 SUBJECTIVE: She is sleeping, easy to arouse. No complaints. She states overall she is feeling very well and, in her words, feels good. OBJECTIVE: Vitals: Temperature 99.1 degrees, pulse 100, respirations 17, blood pressure 140/92. Eyes: Pupils are equal and round. Lungs: Clear in all lung griffin. Cardiovascular exam: Regular rhythm and rate without murmur or S3. Abdomen: Soft. Skin: Warm and dry. : Urine output 1200 mL. Blood sugar 232, 109, 144. ASSESSMENT AND PLAN: 1. She is stable neurologically and she had recent onset of right hemiparesis and dysphagia. 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 Continue physical therapy and occupational therapy. Hope to get her back to [facility] on Thursday. 2. Baseline cognitive impairment. 3. Diabetes mellitus type 2. 4. Volume status looks good. 5. Chronic kidney disease. Her creatinine is down to 2.1; it was 3.3 on admission. So, continue present orders. Continue physical therapy and speech therapy. Hope to get her back to [facility] on Thursday. cc: Alvarado Olvera MD
[2018-05-29] MEDS: ZOFRAN IV PRN (16:14)
[2018-05-30] MEDS: ASPIRIN PR SCH (00:16)
[2018-05-30] MEDS: PROTONIX IV SCH (05:07)
[2018-05-30] MEDS: ROCEPHIN 1 GM in NS 50 ML IV SCH (05:07)
[2018-05-30] MEDS: SODIUM CHLORIDE 0.9% INJ SCH (05:07)
--- NOTE | 2018-05-30 13:09 | PROGRESS NOTE ---
DATE: 05/30/2018 SUBJECTIVE: Ms. Florence was sleeping, resting comfortably, easy to arouse. No complaints. Breathing comfortably. She ate about half of her breakfast. She remains afebrile. No complaints. Bowels are moving by report. OBJECTIVE: Vital Signs: Temp 98.5 degrees, pulse 115, respirations 18, blood pressure 159/94. HEENT: Pupils are equal and round. Lungs: Clear in all lung griffin. Cardiovascular: Regular rhythm and rate without murmur or S3. Abdomen: Soft. Skin: Warm and dry. LABORATORY DATA: Blood sugar is 132, 168, 181. ASSESSMENT AND PLAN: 1. Stable neurologically, recent onset of right hemiparesis and dysphagia. 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 She seems to be stable and improving. Hope to get her to [facility] tomorrow. 2. Baseline cognitive impairment. Aware and stable. 3. Diabetes mellitus type 2. Blood sugar is well controlled. Hematocrit 32, hemoglobin 10, which is stable. 4. Volume status looks good. 5. Chronic kidney disease. Her creatinine is stable at 2.1. REVIEW OF ORDERS: I do not see any change. Will change the Protonix to p.o. I think we can stop the ceftriaxone. cc: Alvarado Olvera MD
[2018-05-31] MEDS: ASPIRIN PR SCH (02:22)
[2018-05-31 08:25] VITALS: BP 152/88
[2018-05-31] MEDS ORDERED: NEXIUM PO SCH (09:00)
--- NOTE | 2018-06-01 02:16 | DISCHARGE SUMMARY ---
ADMISSION DATE: 05/25/2018 DISCHARGE DATE: 05/31/2018 CONSULTATIONS: Dr. Susana Pham with Neurology. PERTINENT PROCEDURES: 1. Head CT. Stable multifocal encephalomalacia that is severe on the right. No definite acute intracranial pathology by CT. 2. Brain MRI. Multiple small foci of infarction in the cortex and subcortical zones of both parietal lobes as described. Given the bilateral distribution, the possibility of emboli from the aorta heart could not be excluded. 3. Carotid Dopplers. Unremarkable carotid imaging study, unchanged from prior in 2013. 4. Echocardiogram. 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 Early diastolic dysfunction. 5. Recent onset of right hemiparesis and dysphagia. Initial head CT showed multifocal encephalomalacia, severe on the right. Followup MRI showed a multi small foci of infarction of the cortex and subcortical zones of both parietal lobes. She was ruled out with any emboli with an echocardiogram as well as carotid Dopplers. She was evaluated by Neurology. She will continue on aspirin and statin. 6. Baseline cognitive impairment. The patient knows her name and date of . She knows she resides at [facility]. She is unsure of her location at this time. She is at her baseline. 7. Diabetes mellitus type 2, controlled with diabetic diet. She did undergo a bedside swallow, and the recommend diabetic diet with aspiration precautions. 8. Acute kidney injury on chronic kidney disease. On admission, patient is at her baseline. 9. Urinary tract infection. Upon admission, the patient has completed a full course of IV antibiotics. 10. Concern over QTc prolongation with Seroquel and Nuedexta. Both those medications along with her levofloxacin were stopped upon admission and have not been restarted. 11. History of previous cerebrovascular accident where she did have left-sided weakness, aware. 12. Fluid volume depletion. The patient improved with IV fluids. 13. Hypertension. Patient will allow for permissive hypertension. We will reinitiate back her on her home medications. HOSPITAL COURSE: Briefly, Ms. 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 She has had resilient left-sided hemiparesis for over a year. She was brought in with a questionable right-sided weakness. CT scan at that time was negative. She was brought in again because of progression of her right-sided weakness. Family reported some dysphagia. She was also found to be aphasic and required a lot of prompting to even say the names of her daughters who were at the bedside at the time of admission. She does follow basic commands. They followed up with a brain MRI as well as echocardiogram and carotid Dopplers. She was evaluated by Neurology. She continues to have left and right-sided hemiparesis. Her neuro in light of her age and deficits she is not a candidate for aggressive intervention. She will continue on daily aspirin and statin and continue to monitor and follow pressures closely. She does seem to have a baseline cognitive impairment that is stable. She was given IV hydration as well, and completed a full course of IV antibiotics for her urinary tract infection. She was evaluated by speech therapy who recommends a diabetic diet with aspiration precautions. She will return to [facility] today where she is a resident. DISCHARGE DIET: Diabetic with aspiration precautions. PHYSICAL EXAM: Vital signs: Temperature is 98.4 degrees, heart rate 108, respirations 18, blood pressure 152/88, O2 is 98% on room air. General: Ms. Florence is a 73-year-old female who is lying in the bed in no acute distress. Awake and alert. HEENT: Atraumatic, normocephalic. PERLA Neck: Supple. Trachea midline. CV: S1-S2 appreciated with murmur present. Pulmonary: Bilateral breath sounds clear in all lung griffin Abdomen: Soft, nondistended, nontender. Positive bowel sounds 4 quadrants. Extremities: No cyanosis or edema. Bilateral pedal pulses are palpable. Skin: Warm, dry, and intact. Neurologic: The patient is alert and oriented to name, date of , where she resides. She does know she is in a hospital, however, she could not name the facility. She does follow simple commands. Answers questions appropriately. HOME MEDICATIONS: 1. Depakote ER 125 mg p.o. b.i.d. p.r.n. 2. Colace 100 mg caplet p.o. b.i.d. p.r.n. 3. Flonase 1 spray nasal daily b.i.d. 4. Probiotic 1 tab p.o. at bedtime. 5. Cozaar 100 mg p.o. daily. 6. Metoprolol 50 mg tablet p.o. daily. 7. NicoDerm patch 1 patch TD daily. 8. MiraLAX 1 packet p.o. daily. 9. Zocor 20 mg p.o. at bedtime. 10. Norvasc 5 mg p.o. daily. 11. Aspirin 325 mg p.o. daily. FOLLOWUP: Ms. Florence is being discharged back to [facility]. She can follow up with her primary care provider Dr. Neeraj Last, as well as Neurology on an outpatient basis in the next 7 to 10 days. She can return to the ED or call 911 for any worsening of symptoms. Dictated by RAMON Banda for Alvarado Olvera MD cc: MD Neeraj Bailey MD Eston G. Norwood III, MD MTDD
== END 2018-05-31 18:50 | DRG 57 ==
LOC: SUPCPDRO → ED 20:28 → 3N 05-25 01:33 → SUATTDRO 05-25 01:33
PROVIDERS: ATTEND Emergency Medicine
CPT/HCPCS: 70450; 70551; 71010; 71045; 80048; 80053; 80061; 81001; 82948; 83605; 83690; 83721; 83735; 83880; 84484; 85025; 85610; 85730; 87088; 92610; 93005; 93306; 93880; 96360; 96361; 96365; 97110; 97162; 97530; 99284; 99285; A9270; C9113; J0696; J1956; J2405; J7030; J7040; S0164; XXXXX

== ENCOUNTER 2018-06-14 12:09 | Inpatient (IN) ==
[2018-06-14] MEDS ORDERED: NS 1,000 ML IV ONE ×2 (12:13→12:14)
[2018-06-14] MEDS ORDERED: VANCOMYCIN 1 GM/NS 1 GM/250 ML IVPB IV ONE (12:15)
[2018-06-14] MEDS ORDERED: NS 2,000 ML ONE (12:16)
[2018-06-14] MEDS ORDERED: ZOSYN 3.375 GM in NS 50 ML IV ONE (12:18)
[2018-06-14 12:33] LABS: ALLEN TEST NO; BLOOD TYPE ARTERIAL; HCO3-(ACT) 23.3 mmoll (20.0-26.0); METHB 1.5 % (0.0-1.5); O2(CT) 12.2 mL/dL (15.0-23.0); O2HB 91.7 % (95.0-99.0); PCO2(98.6) 33 mmHg (35-45); PO2(98.6) 65 mmHg (60-100); SAMPLE BLOOD; THB 9.4 g/dL (11.5-17.4); pH(98.6) 7.43 (7.35-7.45)
[2018-06-14 12:34] LABS: MODALITY ROOM AIR
[2018-06-14 12:49] LABS: URINE SOURCE CATH
--- NOTE | 2018-06-14 12:53 | EKG Report ---
Test Performed on : 06/14/2018 12:48:48 PM Test Reason : ams Blood Pressure : / mmHG Vent. Rate : 128 BPM Atrial Rate : 128 BPM P-R Int : 128 ms QRS Dur : 072 ms QT Int : 336 ms P-R-T Axes : 049 015 102 degrees QTc Int : 490 ms Sinus tachycardia. Nonspecific T wave abnormality Abnormal ECG When compared with ECG of 24-MAY-2018 21:31, (Unconfirmed) No significant change was found Unconfirmed Result
--- NOTE | 2018-06-14 12:56 | Diag Imaging Result Doc PS360 ---
EXAM: CHEST-PORTABLE 06/14/2018 HISTORY: fever, ams TECHNIQUE: AP portable at 1239 COMMENT: There are scattered calcified granulomata bilaterally. Compared to 05/27/2018 there has been no significant change in the appearance the chest considering differences in positioning. IMPRESSION: Stable chest. Electronically signed by Vaughn Quintanilla 06/14/2018 12:54 PM
[2018-06-14 12:57] LABS: BILIRUBIN URINE NEGATIVE (NEGATIVE); BLOOD URINE TRACE (NEGATIVE); COLOR YELLOW; GLUCOSE URINE NEGATIVE (NEGATIVE); KETONE URINE NEGATIVE (NEGATIVE); LEUKOCYTES URINE NEGATIVE (NEGATIVE); NITRITE URINE NEGATIVE (NEGATIVE); PH URINE 5.5; PROTEIN URINE 70 mg/dL (NEGATIVE); SP GRAVITY URINE 1.011; TURBIDITY URINE CLEAR (CLEAR); UROBILINOGEN URINE NORMAL (NORMAL)
[2018-06-14 13:00] LABS: INR 1.22; PROTIME 16.4 Seconds (11.0-16.0)
[2018-06-14 13:01] LABS: BASO# 0.01 X1000 (0.0-0.2); BASO% 0.1 % (0.0-0.8); EOS# 0.08 X1000 (0.0-0.7); EOS% 0.7 % (0.0-10.0); HEMOGLOBIN 10.4 g/dL (12.0-16.0); LYMPH# 3.16 X1000 (1.2-3.4); LYMPH% 28.5 % (20.5-51.1); MCH 28.7 PG (27-31); MCHC 30.6 g/dL (33-37); MCV 93.7 FL (81-99); MONO% 11.7 % (1.7-9.3); MPV 11.2 FL (7.4-10.4); NEUT# 6.53 X1000 (1.4-6.5); PLT 320 X1000 (130-400); RBC 3.63 XMIL (4.2-5.4); RDW 14.1 % (11.5-14.5); WBC 11.08 X1000 (4.8-10.8)
[2018-06-14 13:01] LABS: UR EPITHELIAL CELLS <10 /HPF (<10); URINE BACTERIA NEGATIVE /HPF; URINE RBC <10 /HPF (<10); URINE WBC <10 /HPF (<10)
[2018-06-14 13:27] LABS: URINE CASTS NONE SEEN; URINE CRYSTALS NONE SEEN; URINE SMALL ROUND CELLS NONE SEEN; URINE YEAST NONE SEEN
[2018-06-14 13:36] LABS: AGAP 16; ALB/GLOB RATIO 0.9; ALBUMIN 2.9 g/dL (3.5-5.0); ALKALINE PHOSPHATASE 50 U/L (32-104); BUN 73 mg/dL (8-22); CALCIUM 8.7 mg/dL (8.8-10.2); CHLORIDE 129 mmol/L (98-107); COSMO 353; ESTIMATED GFR 13; GLUCOSE 135 mg/dL (70-104); GOT 34 U/L (10-30); GPT 27 U/L (10-36); LIPASE 51 U/L (13-60); MAGNESIUM 3.3 mg/dL (1.5-2.7); POTASSIUM 5.5 mmol/L (3.5-5.1); TCO2 22 mmol/L (25-35); TOTAL BILIRUBIN 0.29 mg/dL (0.20-1.00); VALPROIC ACID < 2.80 ug/mL (50-100)
[2018-06-14 13:38] LABS: SODIUM 167 mmol/L (136-145)
[2018-06-14] MEDS ORDERED: ASPIRIN PR ONE (13:47)
--- NOTE | 2018-06-14 14:04 | Diag Imaging Result Doc PS360 ---
CT ABDOMEN/PELVIS W/O CONTRAST - 06/14/2018 INDICATION: sepsis, acute kidney injury COMPARISON: 09/30/2017 FINDINGS: There is some minimal atelectasis in the lung bases. Heart size is top normal. Stable calcified gallbladder. This indicates a porcelain gallbladder. There is severe patient motion artifact. There is severe diffuse constipation. There is severe rectal stool impaction. There is severe diverticulosis of the descending and sigmoid colon. Miles catheter in the urinary bladder. Urinary bladder is collapsed and otherwise normal. There are some stable scattered nonspecific calcifications of the kidneys bilaterally. Bones are grossly intact. IMPRESSION: Severe constipation with rectal stool impaction. Other chronic nonspecific findings described above. This exam was performed using automated exposure control, adjustment of mA or kV according to patient size, and/or use of iterative reconstruction technique Electronically signed by Harris Sanchez 06/14/2018 2:02 PM
--- NOTE | 2018-06-14 14:49 | PROVIDER DOCUMENTATION ---
This chart was entered by Leora Fontenot Scribe, acting as scribe for Nestor Mora MD. HPI-Fever - General Stated Complaint: POSS SEPSIS Time Seen by Provider: 06/14/18 12:11 Source: EMS Allergies/Adverse Reactions: Patient Allergies Allergy/AdvReac Type Severity Reaction Status Date / Time No Known Allergies Allergy Verified 06/14/18 13:03 Home Medications: Home Medication List Medication Instructions Recorded Confirmed Last Taken Type SIMVAstatin [Zocor] 20 mg PO HS 01/15/14 06/14/18 06/13/18 21:00 History Amlodipine [Norvasc] 5 mg PO DAILY #30 tab 02/22/17 06/14/18 06/14/18 09:00 Rx Losartan [Cozaar] 100 mg PO DAILY 04/16/17 06/14/18 06/14/18 09:00 History Metoprolol Succinate 1 tab PO DAILY 04/16/17 06/14/18 06/14/18 09:00 History Divalproex E.r. [Depakote ER] 125 mg PO BID PRN 05/25/18 06/14/18 06/14/18 09: 00 History Docusate Sodium [Colace] 1 cap PO BID PRN 05/25/18 06/14/18 06/14/18 09:00 History Fluticasone Propionate 1 spray DONA BID 05/25/18 06/14/18 06/14/18 09:00 History L.acidoph,Paracasei, B.lactis 1 cap PO HS 05/25/18 06/14/18 06/13/18 21:00 History [Probiotic] Nicotine Patch [Nicoderm Patch] 1 patch TD DAILY 05/25/18 06/14/18 06/14/18 09: 00 History Polyethylene Glycol 3350 [Miralax] 1 packet PO DAILY 05/25/18 06/14/18 06/14/18 09:00 History Sennosides/Docusate Sodium 1 tab PO DAILY 05/25/18 06/14/18 06/14/18 09:00 History [Sennosides-Docusate Sodium Tab] Aspirin [Aspirin EC] 325 mg PO DAILY #1 tablet. 05/31/18 06/14/18 06/14/18 09: 00 Rx - History of Present Illness-Fever Nature of Presenting Problem: Patient is a 73 year old female who presents to the ED via EMS with fever and decrease in mental status. EMS states patient's daughter stated patient has been lethargic for "a while" but this morning was worse. EMS states patient's temperature was 102 this morning and shelter staff gave the patient rectal Tylenol prior to arrival. EMS states history of CVA. 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) Associated Symptoms: reports: denies symptoms Similar Symptoms Previously?: Yes Recently seen or treated by another doctor?: No Review of Systems - Adult - REVIEW OF SYSTEMS - ADULT ROS:: unobtainable per condition Constitutional: reports: no symptoms reported Eyes: reports: no symptoms reported Ears, Nose, Mouth & Throat: reports: no symptoms reported Cardiovascular: reports: no symptoms reported Respiratory: reports: no symptoms reported Gastrointestinal: reports: no symptoms reported Genitourinary: reports: no symptoms reported Musculoskeletal: reports: no symptoms reported Integumentary: reports: no symptoms reported Neurological: reports: no symptoms reported Psychiatric: reports: no symptoms reported Endocrine: reports: no symptoms reported Hematologic/Lymphatic: reports: no symptoms reported Allergic/Immunologic: reports: no symptoms reported All Other Systems: Reviewed and Negative Past History - Adult - PAST MEDICAL HISTORY-ADULT Review of Records: reports: Nursing Assessment Review, Medications Reviewed, Social history reviewed & non-contributory. Major Childhood Illnesses: reports: denies history Cardiovascular: reports: HTN, hyperlipidemia Respiratory: reports: denies history Gastrointestinal: reports: denies history Obstetrical/Gynecological: reports: denies history Genitourinary: reports: denies history Musculoskeletal: reports: denies history Neurological: reports: CVA Psychiatric: reports: denies history Endocrine/Immune: reports: Diabetes Other Conditions: reports: denies history - PRIOR SURGERIES/PROCEDURES Surgical/Procedure History: reports: none - IMMUNIZATION STATUS Childhood Immunizations: See Nurse Assessment Flu Vaccine: See Nurse Assessment - FAMILY HISTORY Family History: reviewed, not pertinent - SOCIAL HISTORY Smoking: denies Substance Use: denies Living Situation: care facility (SNF) Physical Exam-General - PHYSICAL EXAM-ADULT Initial Vital Signs Reviewed: Yes - CONSTITUTIONAL General Appearance: alert, no apparent distress - EYES Eyes: other (left side eye deviation) - HEAD, EARS, NOSE, MOUTH & THROAT HENMT: other (dry mucous membranes. head turned to right.) - RESPIRATORY Respiratory: chest non-tender, lungs clear, increased rate - CARDIOVASCULAR Cardiovascular: normal peripheral pulses, tachycardia, systolic murmur (2/6) - GASTROINTESTINAL (ABDOMEN) Abdominal Exam: normal bowel sounds, non tender, soft - MUSCULOSKELETAL Extremity: non-tender, other (flexion contracture to bilateral upper and lower extremities) - SKIN Integumentary: other (decreased skin turgor.) - NEUROLOGIC Neurologic: other (twitching to left side of face and left hand) Progress - PLAN OF CARE/RESULTS Progress/Plan/Lab Results: Vital Signs - 8 hr 06/14/18 12:09 06/14/18 12:12 06/14/18 12:20 Temperature Pulse Rate 138 H 138 H 137 H Respiratory Rate 51 H 52 H 46 H Blood Pressure 89/67 O2 Sat by Pulse Oximetry 96 95 96 06/14/18 12:22 06/14/18 12:30 06/14/18 12:32 Temperature Pulse Rate 136 H 132 H 131 H Respiratory Rate 53 H 41 H 42 H Blood Pressure 97/66 108/69 O2 Sat by Pulse Oximetry 96 96 96 06/14/18 12:35 06/14/18 12:40 06/14/18 12:47 Temperature 101.0 F H Pulse Rate 135 H 128 H 128 H Respiratory Rate 32 H 33 H 38 H Blood Pressure 89/57 129/83 O2 Sat by Pulse Oximetry 96 97 96 06/14/18 12:50 06/14/18 13:00 06/14/18 13:02 Temperature Pulse Rate 127 H 126 H 122 H Respiratory Rate 35 H 30 H 37 H Blood Pressure 123/79 O2 Sat by Pulse Oximetry 96 96 95 06/14/18 13:10 06/14/18 13:17 06/14/18 13:20 Temperature Pulse Rate 130 H 128 H 128 H Respiratory Rate 38 H 42 H 39 H Blood Pressure 113/73 O2 Sat by Pulse Oximetry 95 95 95 06/14/18 13:30 06/14/18 13:49 06/14/18 13:51 Temperature Pulse Rate 126 H 125 H 124 H Respiratory Rate 37 H 29 H 30 H Blood Pressure 103/68 O2 Sat by Pulse Oximetry 95 94 L 95 06/14/18 14:00 06/14/18 14:02 06/14/18 14:10 Temperature Pulse Rate 123 H 122 H 120 H Respiratory Rate 28 H 29 H 28 H Blood Pressure 109/71 109/71 O2 Sat by Pulse Oximetry 95 95 95 06/14/18 12:35 Influenza Screen - Final Nasopharyngeal Laboratory Results - last 24 hr 06/14/18 06/14/18 06/14/18 12:15 12:15 12:15 WBC 11.08 H RBC 3.63 L Hgb 10.4 L Hct 34.0 L MCV 93.7 MCH 28.7 MCHC 30.6 L RDW Std Deviation 14.1 Plt Count 320 MPV 11.2 H Neut % (Auto) 59.0 Lymph % (Auto) 28.5 [place] % (Auto) 11.7 H Eos % (Auto) 0.7 Baso % (Auto) 0.1 Neut # (Auto) 6.53 H Lymph # (Auto) 3.16 [place] # (Auto) 1.30 H Eos # (Auto) 0.08 Baso # (Auto) 0.01 Segmented Neutrophils Not Reportable PT INR Specimen Type Sample Site pH pCO2 pO2 HCO3 Base Excess Oxyhemoglobin ABG O2 Sat (Calculated) ABG O2 Saturation ABG Carboxyhemoglobin ABG Methemoglobin [place] Test A-a O2 Difference Total Hemoglobin Lactate Blood Gas Modality FiO2 % Sodium 167 H* Potassium 5.5 H Chloride 129 H Carbon Dioxide 22 L Anion Gap 16 BUN 73 H Creatinine 4.0 H Estimated GFR/1.73 m2 13 BUN/Creatinine Ratio 18 Glucose 135 H Calculated Osmolality 353 Calcium 8.7 L Magnesium 3.3 H Total Bilirubin 0.29 AST 34 H ALT 27 Alkaline Phosphatase 50 Troponin T Bec-D-Eaornkasxnf Pept 5456 H Total Protein 6.0 L Albumin 2.9 L Globulin 3.1 Albumin/Globulin Ratio 0.9 Lipase 51 Plasma Lactate Urine Source Urine Color Urine Turbidity Urine pH Ur Specific [place] Urine Protein Ur Glucose (Stick) Ur Ketones (Stick) Urine Blood Urine Nitrite Urine Bilirubin Urobilinogen Dipstick Urine Leukocytes Urine WBC (Auto) Urine RBC (Auto) U Epithel Cells (Auto) Urine Bacteria (Auto) Urine Crystals Small Round Cells Urine Casts Urine Yeast-like Cells Valproic Acid < 2.80 L Acetone Level 06/14/18 06/14/1819 12:15 12:15 12:15 WBC RBC Hgb Hct MCV MCH MCHC RDW Std Deviation Plt Count MPV Neut % (Auto) Lymph % (Auto) [place] % (Auto) Eos % (Auto) Baso % (Auto) Neut # (Auto) Lymph # (Auto) [place] # (Auto) Eos # (Auto) Baso # (Auto) Segmented Neutrophils PT 16.4 H INR 1.22 Specimen Type Sample Site pH pCO2 pO2 HCO3 Base Excess Oxyhemoglobin ABG O2 Sat (Calculated) ABG O2 Saturation ABG Carboxyhemoglobin ABG Methemoglobin [place] Test A-a O2 Difference Total Hemoglobin Lactate Blood Gas Modality FiO2 % Sodium Potassium Chloride Carbon Dioxide Anion Gap BUN Creatinine Estimated GFR/1.73 m2 BUN/Creatinine Ratio Glucose Calculated Osmolality Calcium Magnesium Total Bilirubin AST ALT Alkaline Phosphatase Troponin T 0.717 H* Nmv-I-Nbbudrlpsfy Pept Total Protein Albumin Globulin Albumin/Globulin Ratio Lipase Plasma Lactate Urine Source Urine Color Urine Turbidity Urine pH Ur Specific [place] Urine Protein Ur Glucose (Stick) Ur Ketones (Stick) Urine Blood Urine Nitrite Urine Bilirubin Urobilinogen Dipstick Urine Leukocytes Urine WBC (Auto) Urine RBC (Auto) U Epithel Cells (Auto) Urine Bacteria (Auto) Urine Crystals Small Round Cells Urine Casts Urine Yeast-like Cells Valproic Acid Acetone Level NEGATIVE 06/14/18 06/14/18 06/14/18 12:20 12:25 12:29 WBC RBC Hgb Hct MCV MCH MCHC RDW Std Deviation Plt Count MPV Neut % (Auto) Lymph % (Auto) [place] % (Auto) Eos % (Auto) Baso % (Auto) Neut # (Auto) Lymph # (Auto) [place] # (Auto) Eos # (Auto) Baso # (Auto) Segmented Neutrophils PT INR Specimen Type ARTERIAL Sample Site R BRACHIAL pH 7.43 pCO2 33 L pO2 65 HCO3 23.3 Base Excess -2.0 Oxyhemoglobin 91.7 L ABG O2 Sat (Calculated) 12.2 L ABG O2 Saturation 95.0 ABG Carboxyhemoglobin 2.00 ABG Methemoglobin 1.5 [place] Test NO A-a O2 Difference 43.0 Total Hemoglobin 9.4 L Lactate 1.30 Blood Gas Modality ROOM AIR FiO2 % 21.0 Sodium Potassium Chloride Carbon Dioxide Anion Gap BUN Creatinine Estimated GFR/1.73 m2 BUN/Creatinine Ratio Glucose Calculated Osmolality Calcium Magnesium Total Bilirubin AST ALT Alkaline Phosphatase Troponin T Ogk-E-Awligyvkzso Pept Total Protein Albumin Globulin Albumin/Globulin Ratio Lipase Plasma Lactate 1.9 Urine Source CATH Urine Color YELLOW Urine Turbidity CLEAR Urine pH 5.5 Ur Specific [place] 1.011 Urine Protein 70 A Ur Glucose (Stick) NEGATIVE Ur Ketones (Stick) NEGATIVE Urine Blood TRACE A Urine Nitrite NEGATIVE Urine Bilirubin NEGATIVE Urobilinogen Dipstick NORMAL Urine Leukocytes NEGATIVE Urine WBC (Auto) <10 Urine RBC (Auto) <10 U Epithel Cells (Auto) <10 Urine Bacteria (Auto) NEGATIVE Urine Crystals NONE SEEN Small Round Cells NONE SEEN Urine Casts NONE SEEN Urine Yeast-like Cells NONE SEEN Valproic Acid Acetone Level Orders Category Date Time Status Finger Stick Blood Sugar (ED) DIRECTED Care 06/14/18 12:11 Active Miles Cath Insertion ORDERED Care 06/14/18 12:11 Active Nursing- Obtain EKG once Care 06/14/18 12:12 Active Saline Loc NOW Care 06/14/18 12:12 Active CHEST-PORTABLE [RAD] Stat Exams 06/14/18 12:[address] ABDOMEN/PELVIS W/O CONTRAST [CT] Stat Exams 06/14/18 13:13 Completed ABG [RESP] Routine Lab 06/14/18 12:20 Completed ACETONE SERUM [CHEM] Stat Lab 06/14/18 12:15 Completed BLOOD CULTURE [BLDCUL] Stat Lab 06/14/18 12:17 Results CBC WITH ELECTRONIC DIFF [HEME] Stat Lab 06/14/18 12:15 Completed COMPREHENSIVE METABOLIC PANEL [CHEM] Stat Lab 06/14/18 12:15 Completed INFLUENZA SCREEN A/B Stat Lab 06/14/18 12:35 Completed LACTATE, PLASMA [CHEM] Stat Lab 06/14/18 12:25 Completed LIPASE [CHEM] Stat Lab 06/14/18 12:15 Completed MAGNESIUM [CHEM] Stat Lab 06/14/18 12:15 Completed PRO B-NATRIURETIC PEPTIDE Stat Lab 06/14/18 12:15 Completed PROTIME WITH INR [COAG] Stat Lab 06/14/18 12:15 Completed TROPONIN T Stat Lab 06/14/18 12:15 Completed URINALYSIS W/POSS RFLX CULT [URINALYSIS] Stat Lab 06/14/18 12:29 Completed URINE MANUAL MICROSCOPIC [URINALYSIS] Stat Lab 06/14/18 12:29 Completed VALPROIC ACID [TDM] Stat Lab 06/14/18 12:15 Completed 0.9% Sodium Chloride Inj [Ns] 1,000 ml Med 06/14/18 12:13 Discontinued IV 999 mls/hr 0.9% Sodium Chloride Inj [Ns] 1,000 ml Med 06/14/18 12:14 Discontinued IV 999 mls/hr 0.9% Sodium Chloride Inj [Ns] 2,000 ml Med 06/14/18 12:16 Discontinued .ROUTE As Directed Aspirin Med 06/14/18 13:47 Discontinued 300 mg ID NOW ONE Piperacillin/Tazobactam [Zosyn] 3.375 gm Med 06/14/18 12:18 Discontinued 0.9% Sodium Chloride Inj [Ns] 50 ml IV NOW Vancomycin 1 gm/Ns Med 06/14/18 12:15 Discontinued 1 gm in 250 ml IV NOW EKG [EKG] Stat Ther 06/14/18 12:12 Draft Result Diagrams: 06/14/18 12:15 06/14/18 12:15 - REASSESSMENT Reassessment #1 Time Reassessed: 14:19 Status: improving (Patient is septic positive, though not severe sepsis. Likely source is gall bladder with a negative CXR and Urine. Patient has JUSTIN, also elevated trop. 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 - XRAY 1 XRAY Study: Chest Impression: See EMR Report ( EXAM: CHEST-PORTABLE 06/14/2018 HISTORY: fever, ams TECHNIQUE: AP portable at 1239 COMMENT: There are scattered calcified granulomata bilaterally. Compared to 05/27/2018 there has been no significant change in the appearance the chest considering differences in positioning. IMPRESSION: Stable chest. Electronically signed by Vaughn Quintanilla 06/14/2018 12 :54 PM 06/14/18 1254 Interpreting Physician: Vaughn Quintanilla MD Dictated Date/Time: 06/14/18 1253 cc: Nestor Mora MD; Neeraj Last MD ) - CT/MRI 1 CT Study: Abdomen Impression: Abnormal, See EMR Report (Signed CT ABDOMEN/PELVIS W/O CONTRAST - 06/14/2018 INDICATION: sepsis, acute kidney injury COMPARISON: FINDINGS: There is some minimal atelectasis in the lung bases. Heart size is top normal. Stable calcified gallbladder. This indicates a porcelain gallbladder. There is severe patient motion artifact. There is severe diffuse constipation. There is severe rectal stool impaction. There is severe diverticulosis of the descending and sigmoid colon. Miles catheter in the urinary bladder. Urinary bladder is collapsed and otherwise normal. There are some stable scattered nonspecific calcifications of the kidneys bilaterally. Bones are grossly intact. IMPRESSION: Severe constipation with rectal stool impaction. Other chronic nonspecific findings described above. This exam was performed using automated exposure control, adjustment of mA or kV according to patient size, and/or use of iterative reconstruction technique Electronically signed by Harris Sanchez 06/14/2018 2:02 PM 06/14/18 1402 Interpreting Physician: Harris Sanchez MD Dictated Date/Time: 06/14/18 0087 cc: Nestor Mora MD; Neeraj Last MD) - CONSULTS/PCP/HOSPITALIST Notification #1 *Consult/PCP/Hospitalist*: RAMON Rubio, paged at [phone] #[phone] Consult: RAMON Rubio for Hospitalist Time Discussed: 14:38 (Dr. Dominguez accepted admit) Reason/Comments: consulted with Ramiro about patient. Consult Disposition: Will see in ED, Admit Departure - Departure Date of Disposition Decision: 06/14/18 Time of Disposition Decision: 14:20 DIAGNOSIS: Gall bladder disease, Hypernatremia, Elevated troponin I level Sepsis Qualifiers: Sepsis type: sepsis due to unspecified organism Qualified Code(s): A41.9 - Sepsis, unspecified organism Altered mental status, unspecified Qualifiers: Altered mental status type: somnolence Qualified Code(s): R40.0 - Somnolence Disposition: ADMITTED INPATIENT 09 Certified Medical Emergency: Emergent Condition: Fair Referrals and Follow-Ups: Neeraj Last MD [Primary Care Provider] - - Critical Care Note This patient required my direct & personal management of CC.: Yes Total Time (mins): 45 Critical Care Statement: This patient required my direct personal management to treat or rule out processes, the absence of which, could potentiallly result in sudden, clinically significant life or limb threatening deterioration. Attestation - Physician/ ANJALI Attestation Patient care was provided by Advanced Practice Provider:: No The physician spent face to face time with patient:: Yes Advanced Practice Provider documentation review:: Supervising physician onsite and consulted in the evaluation and care of this patient. The physician did have a face to face encounter with the patient. This chart was documented by the indicated scribe, (Leora Fontenot Scribe) and accurately reflects the services I performed and decisions made by me, Nestor Mora MD, as attested by the provider's signature.
[2018-06-14] MEDS ORDERED: ZOFRAN IV PRN (15:55)
[2018-06-14] MEDS ORDERED: TYLENOL PR PRN (16:02)
[2018-06-14] MEDS ORDERED: FLEET ENEMA PR ONE (16:03)
[2018-06-14] MEDS ORDERED: DULCOLAX PR ONE (16:04)
[2018-06-14] MEDS ORDERED: D5 1/2 NS 1,000 ML IV ONE (16:05)
--- NOTE | 2018-06-14 16:21 | Diag Imaging Result Doc PS360 ---
CT HEAD W/O CONTRAST - 06/14/2018 INDICATION: AMS COMPARISON: 05/24/2018 FINDINGS: Stable extensive encephalomalacia. No intracranial mass or hemorrhage. The skull is intact. There is bilateral mastoiditis right worse than left. IMPRESSION: Bilateral mastoiditis. No intracranial process. This exam was performed using automated exposure control, adjustment of mA or kV according to patient size, and/or use of iterative reconstruction technique Electronically signed by Harris Sanchez 06/14/2018 4:18 PM
[2018-06-14] MEDS ORDERED: TEFLARO IV SCH (17:15)
--- NOTE | 2018-06-14 17:37 | HISTORY AND PHYSICAL ---
PRIMARY CARE PROVIDER: Neeraj Last MD at [facility]. CHIEF COMPLAINT: Per daughter in room, fever, unresponsiveness and when the patient came to talking out of her head. HISTORY OF PRESENT ILLNESS: Ms. Florence is a 73-year-old female who was admitted to our hospitalist service on 05/25/2018 and discharged on 05/31/2018 for onset of right hemiparesis and dysphagia, as well as treated for urinary tract infection and acute kidney injury on chronic kidney disease with past medical history of previous CVAs for which she initially had her right side affected, hypertension dyslipidemia, diabetes mellitus type 2, pseudobulbar affect, COPD, asthma, vascular dementia without behavioral disturbance, dysphagia. Upon arrival to the ED, she was noted to be febrile. She was also febrile at the shelter. She was given p.r. Tylenol. She does have a slight white count at 11. Imaging with chest x-ray did not show anything acute. Abdomen and pelvis CT showed severe constipation and fecal impaction. 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 Per daughter at bedside, she was last seen normal this past on the 10 of June. Her daughter took off work today to come and check on her. Again, she was found sleepy, somewhat unresponsive and then when the daughter was able to wake her up, she was talking out of her head, and she felt very hot. She states that since her last discharge she had been changed to a diabetic pureed diet, and it would take a lot to get her to eat. She does not believe that she has been taking in enough liquids. She was found to be hypernatremic, tachycardic, hypotensive, acute kidney injury on her chronic kidney disease as well as elevated troponins. Her urinalysis was negative for any bacteria. Again, chest x-ray was clear. She was given 2 L saline boluses and initiated on IV antibiotics for probable sepsis. The patient is still somewhat lethargic. She is very hard to awaken. We will watch her closely in the ICU overnight, continue with hydration. We will recheck her elevated troponin of 0.7 at 1800 along with her CMP at 1800. PAST MEDICAL HISTORY: 1. History of previous CVAs with right-sided weakness. 2. Hypertension. 3. Dyslipidemia. 4. Diabetes mellitus type 2. 5. Pseudobulbar affect. 6. COPD. 7. Asthma. 8. Vascular dementia without behavioral disturbance. 9. Dysphagia. 10. Chronic kidney disease. PAST SURGICAL HISTORY: No known past surgeries. SOCIAL HISTORY: She is a former smoker. Her family states she quit smoking 4 to 5 months ago and was on a nicotine patch. No alcohol or illicit drugs. She is a long-term resident at [facility]. She normally gets around in a wheelchair. She has recently been placed on a diabetic pureed diet secondary to her dysphagia. FAMILY HISTORY: Mother, father, brothers and sisters all have known strokes, diabetes mellitus and hypertension. ALLERGIES: No known drug allergies. HOME MEDICATIONS: 1. Norvasc 5 mg p.o. daily. 2. Aspirin 325 mg p.o. daily. 3. Depakote ER 125 mg p.o. b.i.d. for agitation. 4. Colace 100 mg cap p.o. b.i.d. 5. Flonase 1 spray nasal daily b.i.d. 6. Probiotic 1 cap p.o. at bedtime. 7. Cozaar 100 mg p.o. daily. 8. Metoprolol 50 mg p.o. daily. 9. Nicotine patch 14 mg 1 patch TD daily. 10. MiraLAX 1 packet p.o. daily. 11. Sennosides 1 tab p.o. daily. 12. Zocor 20 mg p.o. at bedtime. REVIEW OF SYSTEMS: Unable to obtain secondary to patient's sleepiness. She only wakes up briefly and then falls right back asleep. PHYSICAL EXAMINATION: VITAL SIGNS: Temperature upon arrival was 101.0, heart rate 124, respirations 31, blood pressure 110/79. O2 is 97% on room air. GENERAL: Ms. Florence is an ill-appearing 73-year-old female who is lying on the stretcher snoring. She is hard to arouse, but she does arouse to aggressive tactile stimulation, does not really answer any questions or follow commands. HEENT: Atraumatic, normocephalic. PERRL. NECK: Supple. Trachea midline. CARDIOVASCULAR: S1, S2 appreciated. Positive murmur. No gallops or rubs noted. RESPIRATORY: Lung sounds relatively clear bilaterally, decreased in the bases. No rales, rhonchi, or wheezes. GASTROINTESTINAL: Soft, nontender, nondistended. Hypoactive bowel sounds. GENITOURINARY: Miles draining clear urine. SKIN: Turgor is poor. Lips are dry and cracked. Tongue appears dry. NEUROLOGIC: Again, patient was hard to arouse, but she did arouse briefly to tactile stimuli and voice. She did not answer any questions or follow any commands. She fell right back asleep. DIAGNOSTIC DATA: 1. Chest x-ray is stable. 2. Abdomen and pelvis CT: Severe constipation with rectal stool impaction, porcelain gallbladder that does appear stable. 3. Head CT shows bilateral mastoiditis. No intracranial process. LABORATORY DATA: White count 11, hemoglobin and hematocrit 10 and 34, platelet count 320,000. Sodium 167, potassium 5.5, chloride 129, BUN 73, creatinine 4.0, blood glucose is 135, magnesium 3.3, AST 34, troponin 0.717. ProBNP 5456. Albumin 2.9. Lipase 51. Lactate was 1.9. Urinalysis was negative. Valproic acid was less than 2.80. Acetone negative. ASSESSMENT AND PLAN: 1. Metabolic encephalopathy secondary to dehydration. We will continue to follow her electrolytes closely. Continue with IV hydration. 2. Severe Dehydration continue with IV Hydration 3. Probable sepsis. Unknown source The patient does have bilateral mastoiditis but has been noted on previous head CT. We will continue with IVantibiotics, broad spectrum. Chest x-ray was clear. Urinalysis was clear. There is some question of a porcelain gallbladder. We will ask surgery to review imaging. 4. Numerous electrolyte imbalances secondary to severe dehydration, hypernatremia, hyperkalemia, hyperchloremia, hypermagnesemia. We will continue with hydration. Recheck her labs. 5. Elevated troponins. We will continue to trend. 6. Acute kidney injury on chronic kidney disease. Continue with IV hydration. Consult Nephrology if appropriate. 7. Severe constipation with fecal impaction secondary to dehydration. We will continue with Fleet enema and bisacodyl suppositories until patient is more awake and taking in PO. 8. Previous cerebrovascular accidents in the past with hemiplegia and hemiparesis. 9. Diabetes mellitus. We will continue with sliding scale. 10. Hypertension. We will hold her hypertensive medications for now. She was initially hypotensive. 11. Further recommendations to follow physician evaluation, laboratory, and diagnostic data. Dictated by RAMON Banda for Tramaine Dominguez MD cc: MD Neeraj Greco MD I have seen and examined Ms Florence today. Daughter was at the bedside I have also reviewed her labs and imaging studies. Ms Florence presents with AMS and sepsis like picture. Looks very dehydrated with extremely high Na levels on the chemistry. Cultures have been done. Will continue fluid resuscitation and antibiotics. I agree with the above HPI and the plan reflects my opinion discussed with the RETAIL LOAN ORIGINATOR ASSISTANT. Critical time spent 45 minutes. SALVATORE
[2018-06-14 18:12] LABS: ALB/GLOB RATIO 0.7; ALBUMIN 2.7 g/dL (3.5-5.0); CALCIUM 8.1 mg/dL (8.8-10.2); CREATININE 3.7 mg/dL (0.5-0.9); POTASSIUM 4.7 mmol/L (3.5-5.1); TOTAL BILIRUBIN 0.2 mg/dL (0.20-1.00); TOTAL PROTEIN 6.6 g/dL (6.3-8.3)
[2018-06-14] MEDS: TEFLARO 400 MG in NS 250 ML IV SCH (18:35)
[2018-06-14 19:28] LABS: CK-MB 2.75 ng/mL (0.0-5.0)
--- NOTE | 2018-06-14 19:32 | GENERAL SURGERY CONSULTATION ---
DATE: 06/14/2018 REASON FOR CONSULTATION: Porcelain gallbladder. HISTORY OF PRESENT ILLNESS: This was all obtained from her daughter as the patient is having a difficult time communicating, which I think may be her baseline. In any case, she was admitted a few weeks ago with a TIA and was sent to a detention. Since that time at the detention, she seems to have declined with some abdominal pain, decreased oral intake, and then as of this morning, she was found to be less responsive and febrile. She was brought to the hospital for further evaluation. She was found to have a sodium of 170. She was also hypotensive and tachycardic. Her cardiac enzymes are mildly elevated. Imaging tests included a chest x-ray, head CT and abdominal pelvis CT scan, which are notable for severe constipation and rectal stool impaction and a stable porcelain gallbladder as well as bilateral mastoiditis, but no acute intracranial process. She is also noted to have stable extensive encephalomalacia. PAST MEDICAL HISTORY: Strokes with right-sided weakness, hypertension, hyperlipidemia, type 2 diabetes, COPD, asthma, vascular dementia, dysphagia, chronic kidney disease. PAST SURGICAL HISTORY: Tubal ligation and partial hysterectomy. FAMILY HISTORY: Stroke, diabetes, hypertension in multiple family members. SOCIAL HISTORY: She is a former smoker. No current tobacco, alcohol or illicit drug use. She is a resident at [facility], and by report she does move around in a wheelchair, although I have also gotten report that she is bedbound. ALLERGIES: No known drug allergies. HOME MEDICATIONS: Norvasc, aspirin, Depakote, Colace, Flonase, probiotic, Cozaar, metoprolol, nicotine patch, MiraLAX, sennoside and Zocor. REVIEW OF SYSTEMS: Unobtainable. PHYSICAL EXAMINATION: Vital Signs: Temperature 100.2 degrees, pulse 118 to 120, respiratory rate 21, blood pressure 136/89, O2 saturation 97%. General: She is a frail elderly female who is arousable but slow to respond. HEENT: Normocephalic, atraumatic. Mucous membranes are dry. I did not evaluate her pupils. Neck: Supple. No thyromegaly. Cardiovascular: Tachycardic and regular. Respiratory: Bilateral breath sounds. No work of breathing. Gastrointestinal: Soft, nontender, nondistended. No organomegaly or mass. Extremities: Her legs are drawn up, and she is essentially in the position and unable to straighten out. She does have dry decubitus injuries to her heels but no erythema or fluctuance. Skin: Warm and dry. No rash. LABORATORY DATA: White blood cell count 11, hemoglobin 10, hematocrit 34, platelet count 320. Sodium 170, potassium 4.7, chloride 138, BUN 73, creatinine 3.7, glucose 127, AST 39, ALT 27, alkaline phosphatase 45, total bilirubin 0.2, lipase 51. Serum lactate 1.9. IMAGING: As above in HPI. ASSESSMENT AND PLAN: A 73-year-old female with altered mental status, fever, and vague abdominal complaints in the setting of recent transient ischemic attack and multiple significant comorbidities. I believe she has primarily a rectal impaction and constipation, which should be treated with stool softeners, enemas and rehydration. I do not think she has acute cholecystitis. 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 I will follow along with you and see how she does, but overall, she is a fairly poor surgical candidate, and it does not appear that she has an acute cholecystitis problem at this time. Thank you for the kind referral. cc: Grant Cleveland MD
[2018-06-14] MEDS: DULCOLAX PR SCH (20:37)
[2018-06-14] MEDS ORDERED: ZOSYN 2.25 GM in NS 50 ML IV SCH (21:00)
[2018-06-14 21:46] LABS: CALCIUM 8.3 mg/dL (8.8-10.2); CREATININE 3.6 mg/dL (0.5-0.9); POTASSIUM 4.9 mmol/L (3.5-5.1)
[2018-06-14] MEDS: D5W 1,000 ML IV SCH (22:33)
[2018-06-15 02:22] LABS: CALCIUM 7.9 mg/dL (8.8-10.2); CREATININE 3.7 mg/dL (0.5-0.9)
[2018-06-15] MEDS ORDERED: HUMULIN R SUBQ ONE (02:37)
[2018-06-15 02:48] LABS: CK INDEX 1.1 (0.0-2.5); CK-MB 2.8 ng/mL (0.0-5.0)
[2018-06-15] MEDS: D5W 1,000 ML IV SCH ×3 (02:58→17:06)
[2018-06-15 05:24] LABS: BASO# 0.02 X1000 (0.0-0.2); BASO% 0.2 % (0.0-0.8); EOS# 0.21 X1000 (0.0-0.7); HEMATOCRIT 28.7 % (37.0-47.0); HEMOGLOBIN 8.4 g/dL (12.0-16.0); IMM GRAN# 0.02 X1000 (0.0-0.04); IMM GRAN% 0.2 % (0.0-0.5); LYMPH# 2.42 X1000 (1.2-3.4); LYMPH% 23.5 % (20.5-51.1); MCH 27.8 PG (27-31); MCHC 29.3 g/dL (33-37); MONO# 1.04 X1000 (0.11-0.59); MONO% 10.1 % (1.7-9.3); MPV 11.2 FL (7.4-10.4); NEUT# 6.59 X1000 (1.4-6.5); PLT 237 X1000 (130-400); RBC 3.02 XMIL (4.2-5.4); RDW 14.1 % (11.5-14.5)
[2018-06-15] MEDS ORDERED: 1/2 NS 1,000 ML IV ONE (05:30)
[2018-06-15] MEDS: HUMULIN R SUBQ SCH ×4 (06:12→20:29)
[2018-06-15] MEDS: TEFLARO 400 MG in NS 250 ML IV SCH (06:12)
[2018-06-15 06:15] LABS: ALB/GLOB RATIO 0.7; ALBUMIN 2.3 g/dL (3.5-5.0); CALCIUM 7.8 mg/dL (8.8-10.2); CREATININE 3.3 mg/dL (0.5-0.9); POTASSIUM 4.7 mmol/L (3.5-5.1); TOTAL BILIRUBIN 0.3 mg/dL (0.20-1.00); TOTAL PROTEIN 5.5 g/dL (6.3-8.3)
--- NOTE | 2018-06-15 07:11 | Diag Imaging Result Doc PS360 ---
EXAM: CHEST-PORTABLE INDICATION: follow up TECHNIQUE: One view COMPARISON: 06/14/2018 FINDINGS: Aside from calcified granulomata, the lungs are grossly clear. No new consolidation is identified. Cardiac silhouette is stable. IMPRESSION: Stable chest. Electronically signed by Papa Nolan 06/15/2018 7:09 AM
--- NOTE | 2018-06-15 07:19 | EKG Report ---
Test Performed on : 06/15/2018 06:46:49 AM Test Reason : tachycardia Blood Pressure : / mmHG Vent. Rate : 103 BPM Atrial Rate : 103 BPM P-R Int : 148 ms QRS Dur : 082 ms QT Int : 332 ms P-R-T Axes : 047 015 087 degrees QTc Int : 434 ms Sinus tachycardia. Minimal voltage criteria for LVH, may be normal variant T wave abnormality, consider lateral ischemia Abnormal ECG When compared with ECG of 14-JUN-2018 12:48, (Unconfirmed) No significant change was found Unconfirmed Result
--- NOTE | 2018-06-15 07:32 | Diag Imaging Result Doc PS360 ---
EXAM: KUB ABDOMEN INDICATION: Follow up constipation TECHNIQUE: 2 views COMPARISON: None. FINDINGS: There is abundant stool in the colon suggesting moderate constipation. There is no obstructive bowel pattern. There is no evidence of large volume free abdominal gas. There is no discrete organomegaly. IMPRESSION: Suggestion of constipation. Electronically signed by Papa Nolan 06/15/2018 7:29 AM
[2018-06-15] MEDS: DULCOLAX PR SCH ×2 (08:03→20:28)
[2018-06-15] MEDS ORDERED: MAXIPIME 1 GM in NS 50 ML IV SCH (10:00)
--- NOTE | 2018-06-15 10:31 | PROGRESS NOTE ---
DATE: 06/15/2018 SUBJECTIVE: This morning, I saw Ms. Florence. She was in the ICU. The daughter from [place] was at the bedside with her. According to the daughter, she was more concerned because yesterday when she came to see her mom, she noted that the mother has some jerky movement of the left upper extremity which she was concerned if that was seizures. From the nursing staff , nobody has noted that. OBJECTIVE: Vital signs: Blood pressure is 156/99, pulse 93, respirations 23, temperature 97.9 degrees. General: Ms. Florence is a 73-year-old female. She is in bed. She is not in any cardiopulmonary distress. HEENT: Mucosa is pink and moist. Anicteric. Acyanotic. Neck: Supple. Chest: Air entry is bilaterally reduced. There are no crepitations, no rhonchi. Cardiovascular: Regular rate and rhythm. Abdomen: Soft, distended. Bowel sounds are hypoactive. Extremities: No pedal edema. RUBBER TURNER: The patient is lethargic. She would open her eyes to painful stimulation, but for the most part she has eyes closed. She is nonverbal. She seems to have a preferential gaze to the left side when she has open eyes. She does not track. Pupils are round and they are reactive to light. She did seem to have remarkable left-sided paraplegia. She moves the right side a little bit. LABORATORY DATA: WBC is 10.30, hemoglobin is 8.4, platelet count of 237. Chemistry is also reviewed: Sodium is down to 162, potassium is 4.7, chloride is 130, bicarbonate is 19. Creatinine is 13.3, which is improving from 4.0 on admission. Patient intake and output: The patient's urine output is 1325. ASSESSMENT: 1. Altered mental status. Etiology seems to be multifactorial, but I think the most driving force now is metabolic encephalopathy due to the severe hypernatremia with dehydration. Of note, patient also has multiple cerebrovascular accidents, so to start with, her neurological reserve is compromised, and this will make her recovery a more protracted one. 2. Report of some jerky movement on the left upper extremity. The patient does have preferential gaze to the left. She does have also encephalomalacia on CT scan, which will predispose her for seizures. We are going to be doing an EEG and will consult Neurology to evaluate her. 3. Clinical volume depletion. Will continue with intravenous fluids. 4. Acute on chronic renal failure. Creatinine continues to be trending down. Patient did have a good urine output. 5. Gram-positive cocci bacteremia 1/2. Unsure if this is a contamination or true infection. The patient is currently on cefepime and ceftaroline. I think at 1 point patient was on Zosyn, which has been discontinued. 6. Severe constipation with fecal impaction. We will continue with bowel regimen. Surgery has evaluated the patient. 7. History of multiple cerebrovascular accidents in the past with left side hemiplegia and recent weakness to the right side. 8. Elevated troponins. Unsure if it is due to demand ischemia or from the brain infarction. Cardiology is on board. PLAN: So, in general, I think Ms. Florence is extremely complicated. We are going to continue monitoring her sodium level with just D 5 fluid. We will get Neurology to evaluate her as well. Continue with the antibiotic coverage and be pending the blood cultures and go from there. She seems to be recovering some of her renal function. She is making adequate urine output. We will continue monitoring in the ICU. Addendum: Blood cultures 2 out of 2 positive for GPC. Ass: GPC bacteremia. Antibiotics have been tailored. ID consult placed. cc: Tramaine Dominguez MD Critical time spent 45 minutes [facility]
[2018-06-15 10:39] LABS: CALCIUM 7.8 mg/dL (8.8-10.2); CREATININE 3.3 mg/dL (0.5-0.9); POTASSIUM 4.5 mmol/L (3.5-5.1)
--- NOTE | 2018-06-15 13:53 | CARDIOLOGY CONSULTATION ---
DATE: 06/15/2018 HISTORY OF PRESENT ILLNESS: Patient was admitted with fever, being unresponsive and patient came to and was brought to the hospital. Patient is nonverbal, was admitted 05/25/2018, discharged on 05/31/2018 with acute onset of right hemiparesis, dysphagia, urinary tract infection and kidney injury on chronic kidney disease at that time. She has had previous CVAs. History was obtained from the chart. She was noted to be febrile in the usp. She was given Tylenol. Cardiology was consulted for abnormal troponin. Cannot obtain history from the patient. Imaging revealed severe constipation, fecal impaction. She had severe electrolyte imbalance, in addition to chronic renal insufficiency. PAST MEDICAL HISTORY: 1. Previous CVAs with right-sided weakness. 2. Hypertension. 3. Diabetes. 4. Pseudobulbar affect. 5. COPD. 6. Vascular dementia. 7. Chronic kidney disease. 8. Dysphagia. SOCIAL HISTORY: Former smoker, quit about 4 to 5 months back. She is wheelchair bound. She is a long-term resident at the [facility]. HOME MEDICATIONS: Norvasc 5, aspirin 325, Depakote extended release, Colace 100, Flonase, Cozaar 100, metoprolol 50, sennoside, Zocor 20. REVIEW OF SYSTEMS: Could not be obtained from the patient. EXAMINATION: Vital Signs: When she came in, blood pressure was 110/79, temperature was 101 degrees, heart rate 120; today pulse rate 97, blood pressure 132/84. Cardiovascular System: Normal jugular venous pressure. First and second heart sounds were heard. There was a soft systolic murmur. Respiratory System: Normal air entry. Abdomen: Soft. Central nervous system: Not examined. DIAGNOSTICS: Chest x-ray was stable. Abdominal pelvis CT revealed severe constipation with porcelain gallbladder. CT head mild bilateral mastoiditis. LABORATORY EXAMINATION: Revealed sodium 172, potassium 4.9, BUN 73, creatinine 3.6. CK and CK-MB were normal. Troponin was abnormal at 0.662. Hemoglobin 8.4, hematocrit 28, platelet count off 237, WBC 10.30. CURRENT MEDICATIONS: Include insulin, dextrose, IV fluids, Fosamil, ceftaroline, cefepime, Dulcolax. Antihypertensive medications have been held. ASSESSMENT AND PLAN: Ms. Patty Florence is a 73-year-old Afro-Taj[place] lady, who has had multiple cerebrovascular accidents, has hypertension, diabetes and chronic obstructive pulmonary disease. She is a resident at [facility]. She was brought in with being more unresponsive and fevers. Cardiology was consulted for abnormal troponin; this is secondary to chronic renal insufficiency. Her electrocardiogram revealed normal sinus rhythm. There was no acute ST-T changes to suggest infarction. Recent echocardiogram revealed preserved left ventricular systolic function with asymmetric septal hypertrophy. Ejection fraction of 75 to 80 percent. RECOMMENDATIONS: 1. From a cardiac standpoint, no new recommendations. 2. Continue with antibiotics as planned. 3. Once she is stable, electrolytes are corrected, we can restart her blood pressure medications Thank you for the consult. cc: Silvio Slater MD
--- NOTE | 2018-06-15 14:09 | INFECTIOUS DISEASE CONSULT REP ---
DATE: 06/15/2018 CONCLUSION: The patient has a gram-positive coccal bacteremia. It does not appear to have come from the patient's lungs because there was no consolidation on x-ray. Likewise , it does not seem like it has come from the urinary tract because the urinalysis showed no white cells or bacteria. It may have come from the GI tract because the CT scan of the abdomen and pelvis showed that there was severe constipation. RECOMMENDATIONS: Pending culture results, I have placed the patient on daptomycin. DISCUSSION: The patient is unable provide a history. No family member is present. The patient recently was admitted to the hospital with a stroke which caused right-sided hemiparesis and dysphagia. She was treated during that time for a urinary tract infection. The patient lives in a fdc and she developed fever. She was sent to the emergency room. Both of the patient's blood cultures are growing gram-positive cocci. CBC shows a white count of 10,300, hemoglobin 8.4, and platelet count 237,000. Blood gases show a pH of 7.43, a PO2 of 65, and a pCO2 of 33. Creatinine is 3.3. GFR is 17. Urinalysis showed no white cells or bacteria. CT scan of the abdomen and pelvis showed severe constipation. Chest x-ray, the lung showed calcified granulomas but no consolidation. PAST MEDICAL HISTORY: Positive for previous strokes. The most recent one has caused her to have right-sided weakness. The patient also has hypertension, hyperlipidemia, diabetes mellitus, pseudobulbar affect, COPD, asthma, vascular dementia, dysphagia, and chronic kidney disease. PAST SURGICAL HISTORY: No surgeries are noted. SOCIAL HISTORY: The patient is a former smoker. She does use a nicotine patch. She does not drink alcoholic beverages or use illicit drugs. She is a long-term resident at [facility]. She normally gets around in a wheelchair. FAMILY HISTORY: Positive for strokes, diabetes mellitus, and hypertension. ALLERGIES: The patient has no known drug allergies. HOME MEDICATIONS: Include Norvasc, aspirin, Depakote, Colace, Flonase, probiotic, Cozaar, metoprolol, nicotine patch, MiraLAX, sennosides, and Zocor. PHYSICAL EXAMINATION: Vital Signs: Temperature is 97.4 degrees, pulse 91, respirations 13, blood pressure 134/86. The patient is 5 feet 6 inches tall, weighs 121 pounds. General: She is a chronically ill-appearing, elderly female who is obtunded. Head, Eyes, Ears, Nose, and Throat: The patient does not have any drainage from her ears or nose. Her eyes were open but she did not track and I was unable to see into her mouth. Neck: No stiffness. Lungs: Clear to auscultation. Cardiovascular: Heart rate is regular. Abdomen: Soft and nontender. Neurologic: The patient is lying in bed. She did not make any movements. There was no tremor. She did not respond to verbal stimuli. Integument: Both heels have pressure sores on them. Thank you for the consult. cc: Hussain Carbone MD MTDD
[2018-06-15] MEDS: CUBICIN 350 MG in NS 100 ML IV SCH (14:47)
--- NOTE | 2018-06-15 14:58 | Diag Imaging Result Doc PS360 ---
US RENAL 2 (RETROPER) COMPLETE - 06/15/2018 INDICATION: JUSTIN/CKD TECHNIQUE: COMPARISON: 02/25/2017 FINDINGS: The exam was challenging due to the patient's condition and position. The kidneys are grossly normal. No definite hydronephrosis. The right kidney measures 8.6 x 4.6 x 5 cm. The left kidney measures 9.2 x 4.2 x 4 cm. Cortex measures 10 mm on the right and 8 mm on the left. The urinary bladder is collapsed by a Miles catheter. IMPRESSION: No acute disease. Electronically signed by Harris Sanchez 06/15/2018 2:56 PM
--- NOTE | 2018-06-15 15:00 | EEG REPORT ---
DATE: 06/15/2018 REFERRING PHYSICIAN: Dr. Dominguez BACKGROUND INFORMATION AND TECHNIQUE: This is a routine EEG with video. HISTORY: A 73-year-old female with history of multiple strokes and left-sided hemiplegia and recent right-sided weakness. She is admitted this time with altered mental status, multiple metabolic derangements and volume depletion. There are some jerky movements noted in the left upper extremity. EEG is ordered to detect evidence of seizure. EEG FINDINGS: This is a technically limited EEG due to diffuse and frequent myogenic artifact necessitating heavy filtering. A posterior dominant alpha rhythm is not seen. The background consists of theta delta slowing without admixed faster frequencies. No definite persistent focal slowing. No definite epileptiform discharges. No seizures. Hyperventilation was not performed. Photic stimulation did not alter the record. No definite drowsiness patterns. Stage II sleep is not seen. EKG demonstrates regular intervals. No reports or arm shaking documented during this study. IMPRESSION AND CLINICAL CORRELATION: Abnormal, technically limited routine EEG due to moderate to severe generalized slowing indicative of a moderate to severe nonspecific encephalopathy. No epileptiform discharges or seizures are seen on the current study. This does not rule out an underlying seizure disorder. cc: MD Tramaine Martinez MD [facility] & CLINICDavid
[2018-06-15] MEDS ORDERED: FLEET MINERAL OIL ENEMA PR ONE (15:07)
--- NOTE | 2018-06-15 15:12 | CONSULTATION ---
DATE OF CONSULTATION: 06/15/2018 HISTORY OF PRESENT ILLNESS: Ms. Florence came back to the hospital yesterday after daughter reported some left arm movement, raising question of seizure. I have not spoken directly with daughter. Report to me is that this was a single episode of left arm jerking. She has not had behavior typical of seizure recognized here since admission yesterday. DIAGNOSTIC STUDIES: Workup includes labs showing sodium 162 this morning, 160 this afternoon, as high as 172 yesterday. Blood sugars have been greater than 300 today. BUN has been in the 70s yesterday, 60s today. Noncontrast CT shows extensive mostly posterior right hemisphere encephalomalacia which is old. The more recent left-sided infarction, noted on admission last month, is stable. There is no evidence of new infarction, bleeding, or other acute lesion. She had temperature recorded 101.0 yesterday, afebrile today. Systolic blood pressure is 120s to 150s. MEDICATION: Her medicine list on transfer yesterday includes amlodipine, aspirin, divalproex 125 mg b.i.d., docusate, fluticasone, losartan, metoprolol, nicotine patch, polyethylene glycol, senna, simvastatin, probiotic. PHYSICAL EXAMINATION: On exam now, she is supine, rolled slightly to the right side, head leaned slightly to the right, eyes moving from left to right fully and conjugately spontaneously. Facial motility is diminished bilaterally. Neck is supple. There is chronic increased tone and no voluntary movement in the left arm, unchanged compared to a few weeks ago. Right arm shows diminished tone. She did not move either of her arms purposefully during my time at the bedside. When stimulated, she had some tremulousness with shaking in the left arm, but no clonic activity. She was able to maintain spontaneous left and right eye movement while the shaking was present in the left arm. IMPRESSION: 1. Recent jerking, raising question of seizure. Based on the information I have reviewed and my findings at the bedside, I suspect this is not a seizure. EEG was done earlier today with report pending. If we see clinical evidence of seizure, we can reconsider, but I would not add medication for seizure management at this point. 2. Seizure following recent left hemisphere stroke would be possible and would be expected to involve right limbs and/or language function and might produce transient postictal increased right hemiparesis and dysphasia. It would be unlikely for her old right hemisphere stroke with chronic stable left hemiplegia to become a stroke focus at this relatively late date. 3. Recent dominant left hemisphere stroke with right hemiparesis. She did not use her right arm purposefully during my time at the bedside. There could be some extension of the left hemisphere infarction, but that is not definitely apparent on the noncontrast CT done on admission yesterday, compared to prior scan a few weeks earlier. As above, increased right hemiparesis could be postictal. We might consider further imaging, depending on her clinical course and findings. 4. Stable chronic left hemiplegia, appears unchanged compared to exam last month. Right hemisphere CT findings are stable. 5. Metabolic problems as outlined. Any of these and/or the combination could be associated with changes in her baseline cognitive function, altered level of consciousness and/or seizure, but these metabolic problems would generally be expected to produce a generalized encephalopathy or generalized seizure and not a focal seizure as was reported. I do not have any other suggestion right now. I hope metabolic problems will continue correcting, and EEG will provide some guidance. Thanks for asking Neurology to see Ms. Florence. cc: MD SALVATORE Tovar III
[2018-06-15 15:38] LABS: CALCIUM 8.2 mg/dL (8.8-10.2); CREATININE 3.2 mg/dL (0.5-0.9); POTASSIUM 4.6 mmol/L (3.5-5.1)
[2018-06-15 18:35] LABS: CALCIUM 8.3 mg/dL (8.8-10.2); CREATININE 3.1 mg/dL (0.5-0.9); POTASSIUM 4.3 mmol/L (3.5-5.1)
[2018-06-15 22:34] LABS: CALCIUM 8.4 mg/dL (8.8-10.2); CREATININE 3.2 mg/dL (0.5-0.9); POTASSIUM 4.2 mmol/L (3.5-5.1)
[2018-06-16] MEDS: D5W 1,000 ML IV SCH ×3 (03:59→23:22)
[2018-06-16 05:46] LABS: BASO# 0.01 X1000 (0.0-0.2); BASO% 0.1 % (0.0-0.8); EOS# 0.55 X1000 (0.0-0.7); EOS% 6.4 % (0.0-10.0); HEMATOCRIT 29.1 % (37.0-47.0); HEMOGLOBIN 8.6 g/dL (12.0-16.0); LYMPH# 1.84 X1000 (1.2-3.4); LYMPH% 21.2 % (20.5-51.1); MCH 27.7 PG (27-31); MCHC 29.6 g/dL (33-37); MCV 93.6 FL (81-99); MONO# 0.99 X1000 (0.11-0.59); MONO% 11.4 % (1.7-9.3); MPV 11.6 FL (7.4-10.4); NEUT# 5.27 X1000 (1.4-6.5); NEUT% 60.9 % (42.2-75.2); PLT 226 X1000 (130-400); RBC 3.11 XMIL (4.2-5.4); RDW 13.6 % (11.5-14.5); WBC 8.66 X1000 (4.8-10.8)
[2018-06-16] MEDS: HUMULIN R SUBQ SCH ×4 (06:08→20:56)
[2018-06-16 06:14] LABS: ALB/GLOB RATIO 0.7; ALBUMIN 2.6 g/dL (3.5-5.0); CALCIUM 8.5 mg/dL (8.8-10.2); CREATININE 3.1 mg/dL (0.5-0.9); TOTAL BILIRUBIN 0.39 mg/dL (0.20-1.00); TOTAL PROTEIN 6.1 g/dL (6.3-8.3)
[2018-06-16] MEDS: DULCOLAX PR SCH ×2 (09:32→20:56)
--- NOTE | 2018-06-16 12:04 | PROGRESS NOTE ---
DATE: 06/16/2018 Ms. Florence has not had definite clinical seizure recognized here. Current medication list does not include anything that likely would be associated with encephalopathy or seizure. Lab today shows persistent mild anemia, sodium improved at 156, BUN improved at 59, blood sugar stable in the 160s. There are no new imaging reports today. The EEG showed moderate to severe generalized slowing but nothing definitely focal and no epileptiform discharge. On exam today, she appeared to be asleep. With moderately vigorous stimulation , she opened her eyes, changed her breathing pattern, grunted a little bit. She did not communicate with me. She did not speak. She did not follow commands. Left limb tone and paralysis are unchanged. I could not see definite purposeful movement in the right arm, but there was occasional spontaneous movement in the right arm. She has full lateral eye movement with passive head turning. There is mostly conjugate right gaze at rest. IMPRESSION: 1. Recent dominant left hemisphere infarction with right hemiparesis and dysphasia. The amount of deficit present clinically now is about the same as on exam yesterday and is greater than what I saw in the hospital last admission. There is some concern for a new infarction or extension of recent infarction. That was not apparent on noncontrast CT done 06/14/2018 when she presented for this admission. We might repeat scan in a few days. 2. Old nondominant right hemisphere infarction, extensive encephalomalacia noted on imaging but no new lesion. Left hemiplegia is stable and at baseline. 3. Reported recent left arm movement. What I saw on exam yesterday was not clonic and was not typical of seizure. Electroencephalogram did not show epileptiform discharge. I do not think we have to treat her for seizure at this point. We can reconsider if she has a more typical episode. Thanks for asking neurology to see Ms. Florence. cc: MD SALVATORE Tovar III
[2018-06-16] MEDS ORDERED: VANCOMYCIN IV PER PHARMACY MISC SCH (13:00)
--- NOTE | 2018-06-16 13:44 | INFECTIOUS DISEASE PROGRESS NO ---
DATE: 06/16/2018 PRESENT ILLNESS: The patient has a gram-positive coccal bacteremia. The organism has not yet been identified. MEDICATIONS: This is the second day that the patient has been on daptomycin. PHYSICAL EXAMINATION: Vital Signs: Temperature is 98 degrees, pulse 86, respirations 17, blood pressure 142/81. General: This is an ill-appearing, elderly female. She is in no acute distress. Head, eyes, ears, nose and throat: No drainage noted from the nose or ears. Neck: No stiffness. Lungs: Clear to auscultation. Cardiovascular: Heart rate is regular. Abdomen: Soft and nontender. Extremities: Patient has contractures of both legs. Neurologic: The patient is lying in bed. She does not respond to verbal stimuli. There is no tremor. LAB AND RADIOLOGY: The patient's CBC today shows a white count of 8660, hemoglobin 8.6, and platelet count 226,000. Creatinine is 3.1. GFR is 18. Liver function studies are normal. CPK is 249. Blood cultures are growing a gram-positive coccus which has not yet been identified. Swab for influenza is negative. ASSESSMENT AND PLAN: Patient has a gram-positive coccal bacteremia. My plan is to continue daptomycin pending identification of the organism. The dose of daptomycin has been altered because of the patient's renal failure. COMORBIDITIES: The patient has had prior strokes. She also has hyperlipidemia, diabetes mellitus and COPD. She has vascular dementia as well. She also has chronic kidney disease. cc: Hussain Carbone MD
--- NOTE | 2018-06-16 14:07 | INFECTIOUS DISEASE PROGRESS NO ---
DATE: 06/16/2018 ADDENDUM: The patient's laboratory results have returned. The patient's CBC shows a white count of 8660, hemoglobin 8.6, and platelet count 226,000. The patient's creatinine is 3.1 with a GFR of 18. The patient's liver function studies are normal. There is no new radiographic study that was done today. cc: Hussain Carbone MD
--- NOTE | 2018-06-16 14:16 | PROGRESS NOTE ---
DATE: 06/16/2018 SUBJECTIVE: This morning, Ms. Florence continues to be fairly the same, unresponsive, will barely open the eyes to painful stimulation. Per the nursing staff, there were no changes overnight. I have been told that she has had a bowel movement today. OBJECTIVE: Vital signs: Blood pressure is 129/79, pulse is 99, respiration is 16, temperature 99.1 degrees. The patient was saturating 100% on room air. General: Ms. Florence is a 73-year-old female. She is in bed. She did not seem to be in any cardiopulmonary distress. She seems to be in a position. HEENT: Mucosa is pink and moist. Anicteric. Acyanotic. Neck: Supple. Respiratory: Air entry is bilaterally reduced. No crepitations. No rhonchi. Cardiovascular: Regular rate and rhythm. No murmurs, no rubs, no gallops. Gastrointestinal: Abdomen is soft, nontender. Bowel sounds present. Extremities: No pedal edema. Central nervous system: Patient is stuporous. Will open the eyes only to painful stimulation. Seems to have preferential gaze toward the left and she has some minimum movement on the left side. The right side seems to move more spontaneously. LABORATORY DATA: WBC is 8.66, hemoglobin is 8.6, platelet count of 226,000. Chemistry: Sodium is 156, potassium is 4.0, chloride is 126, bicarb is 20, creatinine is down to 3.1, BUN is 51 coming from 73. So far, blood cultures have been 2 positive for gram-positive cocci. ASSESSMENT: 1. Sepsis on presentation with blood culture positive for gram-positive cocci, 2/2. Infectious Disease has been consulted. Patient is currently on daptomycin. 2. Severe hypernatremia with clinical volume depletion. Will continue with IV fluids. 3. Severe constipation with fecal impaction. The patient is on bowel regimen. There is documentation of a bowel movement today. 4. Severe hypernatremia. Sodium has come down from 172 to 156. We are going to continue with the D5 fluid therapy and repeat the electrolytes for later this afternoon. 5. Acute on chronic renal failure. Creatinine continues to be on downward trend. 6. Questionable jerking movement of the left upper extremity. EEG was unremarkable for any epileptiform discharges. Neurology has been is on board. 7. Elevated troponins. Unsure if it is a true [id number] myocardial infarction versus demand ischemia. Cardiology is on board. 8. 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 In general, we are going to continue with the gentle hydration. Follow up on her electrolytes, especially the sodium. Continue with the current antibiotics for gram-positive cocci bacteremia and review her tomorrow with new set of labs and imaging studies. cc: Tramaine Dominguez MD
[2018-06-16 15:58] LABS: CALCIUM 8.5 mg/dL (8.8-10.2); CREATININE 2.6 mg/dL (0.5-0.9); POTASSIUM 4.1 mmol/L (3.5-5.1)
[2018-06-17 06:06] LABS: ALBUMIN 2.3 g/dL (3.5-5.0); CALCIUM 7.6 mg/dL (8.8-10.2); CREATININE 2.5 mg/dL (0.5-0.9); POTASSIUM 3.9 mmol/L (3.5-5.1)
[2018-06-17 06:14] LABS: BASO# 0.01 X1000 (0.0-0.2); BASO% 0.1 % (0.0-0.8); EOS# 0.35 X1000 (0.0-0.7); HEMATOCRIT 26.9 % (37.0-47.0); HEMOGLOBIN 8.2 g/dL (12.0-16.0); LYMPH# 1.66 X1000 (1.2-3.4); LYMPH% 23.9 % (20.5-51.1); MCH 27.4 PG (27-31); MCHC 30.5 g/dL (33-37); MONO# 0.83 X1000 (0.11-0.59); MONO% 11.9 % (1.7-9.3); NEUT% 59.1 % (42.2-75.2); PLT 235 X1000 (130-400); RBC 2.99 XMIL (4.2-5.4); RDW 12.8 % (11.5-14.5); WBC 6.95 X1000 (4.8-10.8)
[2018-06-17] MEDS: HUMULIN R SUBQ SCH ×4 (06:48→21:41)
[2018-06-17] MEDS: DULCOLAX PR SCH ×2 (08:50→23:28)
--- NOTE | 2018-06-17 09:40 | INFECTIOUS DISEASE PROGRESS NO ---
DATE: 06/17/2018 PRESENT ILLNESS: The patient has a bacteremia with 2 separate sets of blood cultures growing Staphylococcus hominis. Because there are 2 separate cultures positive for Staph hominis, it establishes that the patient does have a true Staph bacteremia and not a contaminant. The exact origin of the infection is uncertain to me, possibly it could be from an IV site, although I cannot find one that looks to be the origin currently. MEDICATIONS: I plan to continue the patient on daptomycin. PHYSICAL EXAMINATION: Vital Signs: Temperature is 100 degrees, pulse 97, respirations 21, blood pressure 144/88. General: This is an ill-appearing elderly female. She is in no acute distress. Head/eyes/ears/nose/throat: No drainage is noted from the nose or ears. I only had a limited view of her mouth, but I did not see any white patches. Neck: No stiffness. Lungs: Clear to auscultation. Cardiovascular: Heart rate is regular. Abdomen: Soft and nontender. Extremities: The patient has contractured legs. I do not see any site of inflammation at a prior IV site. Neurologic: The patient does not respond to verbal stimuli. She does not talk. LAB AND RADIOLOGY: As mentioned above, both of the patient's blood cultures are positive for Staph hominis, thus making that a true bacteremia rather than a contamination. The CBC shows a white count of 6950, hemoglobin 8.2, and platelet count 235,000. Creatinine is 2.5. GFR is 23. ASSESSMENT AND PLAN: Patient has a Staphylococcus bacteremia. I plan to treat her for a total of 14 days with day 1 being the first day that the repeat blood cultures are sterile. COMORBIDITIES: The patient has had strokes. She also has hyperlipidemia, diabetes mellitus and COPD. She also has vascular dementia and chronic kidney disease. cc: Hussain Carbone MD
--- NOTE | 2018-06-17 10:34 | PROGRESS NOTE ---
DATE: 06/17/2018 SUBJECTIVE: This morning, Ms. Florence continues to be remarkably the same. No changes overnight per the nursing staff. The night was uneventful. OBJECTIVE: Vital Signs: Blood pressure is 159/94, pulse is 88, respirations are 20, temperature is 98.7 degrees, the patient is saturating 98% on room air. General Examination: Ms. Florence is a 73-year-old, -[place] female. She is in bed. She is not in any cardiopulmonary distress. HEENT: Mucosa is pink and moist. Anicteric. Acyanotic. Neck: Supple. There was no JVD at the neck. Chest: Air entry is bilaterally reduced but no crepitations, no rhonchi. Cardiovascular: Regular rate and rhythm. No murmurs, no rubs, no gallops. GI: Abdomen is soft, nontender. Bowel sounds present. Extremities: No pedal edema. MANGANESE WHEELER: The patient is awake. Eyes open spontaneously but she is nonverbal and will not follow any commands. The left side is very hypertonic. There is some spontaneous movement of the right upper extremity. The patient will slightly withdrawal to painful stimulation in both lower extremities. She does not track. Laboratory Data: WBC is 6.95, hemoglobin is 8.2, platelet count of 235,000. Chemistry is also reviewed. Creatinine is 2.5, sodium has normalized to 145. So far, the blood cultures have shown Staphylococcus hominis species. ASSESSMENT: 1. Sepsis on presentation with blood culture positive for Staphylococcus hominis bacteremia (two out of two), that is methicillin-resistant Staphylococcus aureus. The patient is currently on daptomycin. We will repeat the blood cultures to make sure we have a negative. 2. Severe hypernatremia with clinical volume depletion on presentation, resolved. 3. Severe constipation with fecal impaction, improving. Patient is on a bowel regimen and she has been getting bowel movements. 4. Unresponsiveness. Patient continues to be nonverbal. She looks more alert. However, she is not interacting. The initial CT scan of the brain was unremarkable. We are going to follow it up with an MRI to rule out any stroke that the CT scan did not pickle processor on admission. 5. Acute on chronic renal failure. Creatinine continues to be on a downward trend. I think it is now at her baseline. 6. 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 We will follow up with the MRI to make sure that there is not any new strokes. 7. Questionable jerking movement of the left upper extremity. Electroencephalogram was unremarkable. Neurology is currently on board. PLAN: In general, Ms. Florence continues to be fairly stable. She looks more alert. However, she remains nonverbal. She continues to have rigidity on the left side and some weakness on the right as well. The initial CT scan only showed some encephalomalacia from previous strokes. However, the patient's metabolic derangement has, for most part, resolved. However, she remains aphasic and not following commands. We are going to do an MRI of the brain to rule out any massive stroke that the CT scan did not pickle processor initially. In terms of the patient's nutrition, after the MRI, we might put in an NG tube and start her on some tube feedings. I am also waiting on the family members to discuss about the current state of her medical condition and discuss the plan going forward. cc: Tramaine Dominguez MD
[2018-06-17] MEDS: D5W 1,000 ML IV SCH (12:48)
--- NOTE | 2018-06-17 13:41 | PROGRESS NOTE ---
DATE: 06/17/2018 Ms. Florence remains very poorly responsive. She did not seem to be alert, even with vigorous stimulation. There is full lateral eye movement with passive head turning. I did not see any definite spontaneous limb movement. She had slight withdrawal of the right arm with noxious stimulation. She withdrew the left foot more briskly than the right with noxious stimulation. Tone is increased in the left arm and that is at baseline. There is increased tone in the right arm, still less prominent than on the left. She had a brain MRI earlier today with report pending. There is concern for extension of her left hemisphere infarction based on the increased clinical deficit including more prominent right hemiparesis and possibly increased dysphasia now compared to recent admission. Language function is difficult to third helper at this point with her reduced responsiveness. There was initial concern for a seizure but I do not think she has had seizure. I do not have any urgent suggestion. Further plans will depend on her clinical course and on the MRI report. I believe that her prognosis is quite poor. Thanks for asking neurology to see Ms. Florence. cc: MD SALVATORE Tovar III
--- NOTE | 2018-06-17 14:17 | Diag Imaging Result Doc PS360 ---
EXAM: MRI BRAIN W/O CONTRAST INDICATION: unresponsiveness COMPARISON: 05/25/2018 FINDINGS: There is extensive restricted diffusion involving the left cerebral hemisphere indicating acute infarct. It appears to be predominantly in the left MCA distribution affecting the left frontal, left parietal, and, to a lesser degree, the left temporal lobe. On the previous study, there were patchy infarct in a similar distribution. However, this is much more extensive. There is also minimal restricted diffusion in the posterior right parietal lobe indicating acute infarct. This is very near the site where there was an acute infarct on the previous study as well. There is advanced right hemispheric encephalomalacia that is stable related to an old infarct. There is mild sulcal effacement in the left parietal and left frontal lobe due to edema from the acute infarct. There are stable prominent mastoid air cell effusions. There is mild maxillary and ethmoid sinus mucosal thickening. Surrounding soft tissues and bony structures are essentially unremarkable, otherwise. IMPRESSION: 1.Extensive acute infarct involving the left MCA distribution. Infarct in this distribution was also seen on the previous study but this is much more extensive. 2.Small focal acute infarct involving the right parietal lobe very near the same region as was seen on the previous study. 3.Extensive right hemispheric encephalomalacia, stable. 4.Stable prominent mastoid air cell effusions. Electronically signed by Papa Nolan 06/17/2018 2:14 PM
[2018-06-17] MEDS: CUBICIN 350 MG in NS 100 ML IV SCH (15:52)
--- NOTE | 2018-06-17 18:55 | Diag Imaging Result Doc PS360 ---
EXAM: CHEST-PORTABLE INDICATION: NG placement TECHNIQUE: One view COMPARISON: 06/15/2018 FINDINGS: There is a newly placed NG tube. The tip projects below the diaphragm and is assumed to be in the lumen of the stomach in the expected position. Limited views of the lung bases are stable as compared to the previous study. IMPRESSION: Interval placement of NG tube in the expected position as described. Electronically signed by Papa Nolan 06/17/2018 6:53 PM
[2018-06-18 05:03] LABS: EOS# 0.26 X1000 (0.0-0.7); EOS% 3.4 % (0.0-10.0); HEMATOCRIT 28.2 % (37.0-47.0); HEMOGLOBIN 8.8 g/dL (12.0-16.0); LYMPH# 1.45 X1000 (1.2-3.4); LYMPH% 18.9 % (20.5-51.1); MCH 27.3 PG (27-31); MCHC 31.2 g/dL (33-37); MCV 87.6 FL (81-99); MONO# 0.67 X1000 (0.11-0.59); MONO% 8.7 % (1.7-9.3); MPV 11.3 FL (7.4-10.4); PLT 239 X1000 (130-400); RBC 3.22 XMIL (4.2-5.4); RDW 12.6 % (11.5-14.5); WBC 7.68 X1000 (4.8-10.8)
[2018-06-18] MEDS: HUMULIN R SUBQ SCH ×2 (06:26→11:00)
--- NOTE | 2018-06-18 08:56 | Diag Imaging Result Doc PS360 ---
EXAM: CHEST-PORTABLE HISTORY: SOB TECHNIQUE: Chest single view COMPARISON: 06/17/2018 FINDINGS: The lungs are well expanded. The heart is mildly enlarged. The vessels are not distended. There are scattered granuloma. No pneumonia. No pleural effusions identified. A nasogastric tube overlies the esophagus and stomach. IMPRESSION: Cardiomegaly Electronically signed by Boy Weinstein 06/18/2018 8:54 AM
[2018-06-18] MEDS ORDERED: LASIX IV SCH (09:00)
[2018-06-18] MEDS: DULCOLAX PR SCH (09:25)
[2018-06-18 09:35] LABS: ALLEN TEST YES; BE -5.1 mmoll (-3.0-3.0); BLOOD TYPE ARTERIAL; METHB 1.5 % (0.0-1.5); O2(CT) 11.9 mL/dL (15.0-23.0); O2HB 96.3 % (95.0-99.0); PCO2(98.6) 25 mmHg (35-45); PO2(98.6) 92 mmHg (60-100); SAMPLE BLOOD; SAO2 98.8 % (95.0-100.0); SRATE 10 BPM; THB 8.7 g/dL (11.5-17.4); pH(98.6) 7.46 (7.35-7.45)
[2018-06-18 09:36] LABS: MODALITY BI PAP
[2018-06-18 09:40] LABS: CALCIUM 8.3 mg/dL (8.8-10.2); CREATININE 2.5 mg/dL (0.5-0.9)
[2018-06-18] MEDS ORDERED: MORPHINE IV PRN (09:49)
--- NOTE | 2018-06-18 09:51 | PROGRESS NOTE ---
DATE: 06/18/2018 SUBJECTIVE: This morning, Ms. Florence looks remarkably different from yesterday. She seems to be having more difficulty breathing. I understand early this morning, her tube feeding had to be withheld. I also understand that last night she started getting more tachypneic and more difficulty breathing from last night. OBJECTIVE: Vital signs: This morning her blood pressure is 164/97, pulse of 125, respirations 26, temperature is 97.6 degrees. General: Ms. Florence is a 73-year-old female. She is in bed. She looks in distress. HEENT: Mucosa is pink and moist. Anicteric. Acyanotic. Neck: Supple. There is NG tube in place. Chest: Air entry is bilaterally reduced. There is diffuse expiratory wheezing as well as rhonchi and crackles. The patient also has stridor. Cardiovascular: Tachycardic. There is also an murmur radiating to the neck. Abdomen: Soft. Bowel sounds present. Extremities: No pedal edema. Central nervous system: Ms. Florence continues to be nonverbal. She barely opens the eyes to painful stimulation. She will withdrawal slowly the lower extremities, but I did not see any power in the upper extremities. LABORATORY DATA: WBC is 7.68, hemoglobin is 8.8, platelet count of 239,000. Chemistry is still pending. A chest x-ray is still pending. The patient's intake and output, urine output was 1300. She is currently positive balance of 2799. So far, repeat blood culture on the has not shown anything yet. IMAGING: An MRI of the brain yesterday showed an extensive acute infarction involving the left MCA distribution. There is also small focal acute infarct involving the right parietal lobe very near the same region as seen on the previous. There is extensive right hemispheric encephalomalacia. There is stable prominent mastoid air cells effusion. ASSESSMENT: 1. Unresponsiveness secondary to massive left middle cerebral artery territory acute infarct as well as infarct also in the right brain. The patient does have a remarkable encephalomalacia on the right itself. At this point, I think Ms. Florence has developed a more catastrophic neurological insult and I do not believe she is going to survive this hospitalization. 2. Sepsis on presentation with blood culture positive so for Staphylococcus hominis. A repeat blood culture is still cooking. Patient is on daptomycin. 3. Respiratory failure with stridor. I think patient is having stridor because of upper airway collapse due to neurological failure. Yesterday, the family was very unwilling to intubate her. We will therefore stop the tube feedings, put her on a BiPAP and re-evaluate with the family what they plan to do. 4. History of multiple cerebrovascular accidents noted. 5. Severe hypernatremia on presentation, improved. 6. Acute on chronic kidney failure. PLAN: Prognosis is extremely poor. At this point, I think Ms. Florence is developing a collapse of her upper airway because of neuromuscular failure. She has developed a catastrophic acute stroke on top of her multiple other strokes in the past. I do not think she would survive this hospitalization. I discussed this with the daughter who is the power of environmental science instructor yesterday, and I also called Ms. Mackenzie, her daughter in [place]. Both of them seem to be leaning towards comfort care. I think today Ms. Florence's condition has remarkably changed, it has taken for the worse. I will be waiting for the daughters to come in and have more conversation of the new status. cc: Tramaine Dominguez MD MTDD
[2018-06-18 09:55] LABS: MAGNESIUM 2.4 mg/dL (1.5-2.7); PHOSPHORUS 4.4 mg/dL (2.7-4.5)
--- NOTE | 2018-06-18 11:27 | PROGRESS NOTE ---
DATE: 06/18/2018 MRI showed significant extension of left hemisphere infarction. Systolic blood pressures [id number]. Clinically, neurologically, she is not significantly changed, very poorly responsive, increased tone in the left arm more than the right. No spontaneous movement. No communication with me. My understanding is that family has been informed, and are in the process of making decision for comfort measures. I agree with that plan. I do not have any other suggestions from Neurology standpoint. Thanks for asking us to see Ms Florence. cc: MD SALVATORE Tovar III
[2018-06-18] MEDS ORDERED: ATIVAN IV PRN (13:39)
--- NOTE | 2018-06-18 15:22 | PROGRESS NOTE ---
DATE: 06/18/2018 I met with the 2 daughters including Ms. Mackenzie from [place] and 2 granddaughters. We went over Ms. Florence's clinical course, and the fact that she has suffered a catastrophic left MCA territorial infarct on top of an old right stroke, and the fact that she has continued to be stuporous and unresponsive even after her sodium has been corrected and her blood stream infection has been treated adequately. At the end of the conversation, the daughters and granddaughters all agreed that they would want Ms. Florence to be transitioned to comfort care, and that they would request hospice evaluation. If she does qualify for GIP, they would prefer her to be in hospital and be on hospice. I have therefore consulted social work for hospice services and will follow up with hospice accordingly. cc: Tramaine Dominguez MD
[2018-06-18] MEDS ORDERED: TYLENOL PR PRN (15:53)
[2018-06-18] MEDS ORDERED: ZOFRAN IV PRN (15:54)
[2018-06-18] MEDS: ATIVAN IV PRN ×3 (15:57→19:51)
[2018-06-18] MEDS: MORPHINE IV PRN ×4 (15:57→22:07)
[2018-06-19] MEDS: MORPHINE IV PRN ×4 (02:16→09:28)
[2018-06-19] MEDS: ATIVAN IV PRN ×3 (02:16→06:38)
[2018-06-19 07:21] VITALS: BP 101/60
--- NOTE | 2018-06-19 17:29 | PROGRESS NOTE ---
DATE: 06/19/2018 SUBJECTIVE: This morning, Ms. Florence continues to be pretty much the same, very unresponsive. Family members were at the bedside at the time of the encounter. Ms. Florence has been evaluated by hospice and I think the plan is to transition her to [facility]. OBJECTIVE: Vital Signs: This morning, her vitals are blood pressure 101/60, pulse of 110, respirations 18, temperature 98.5. General: Ms. Florence is a 73-year-old, female. She is in bed. She is on BiPAP. HEENT: Mucosa was pink and moist. Anicteric. Acyanotic. Neck: Supple. Chest: Air entry was bilaterally reduced. A few crackles posteriorly. Cardiovascular: Regular rate and rhythm. Abdomen: Soft, nontender. FIELD CARE MANAGER: Patient is unresponsive. She will barely withdraw both lower extremities to painful stimulation. Pupils are pinpoint and sluggishly reactive. LABORATORY DATA: There is no lab work for today. ASSESSMENT: 1. Unresponsiveness secondary to massive left middle cerebral artery territory acute infarct. 2. History of multiple cerebrovascular accidents in the past with severe right-sided encephalomalacia on imaging. 3. Respiratory failure with stridor due to neurological insult. The patient is not able to control the upper airway. 4. Sepsis on presentation with MRSA bacteremia. Subsequent blood cultures were negative. 5. Severe hyponatremia on presentation, improved. 6. Acute on chronic renal failure. 7. Poor prognosis. Ms. Asher has now been evaluated by hospice. I understand she qualifies for general inpatient, so we are going to transfer her to inpatient hospice. cc: Tramaine Dominguez MD
--- NOTE | 2018-06-22 03:22 | DISCHARGE SUMMARY ---
ADMISSION DATE: 06/14/2018 DISCHARGE DATE: 06/20/2018 ADMISSION DIAGNOSES: 1. Metabolic encephalopathy. 2. Severe dehydration. 3. Probable sepsis. 4. Numerous electrolyte abnormalities. 5. Elevated troponins. 6. Severe constipation, with fecal impaction. 7. Diabetes mellitus. DISCHARGE DIAGNOSES/TRANSFER TO HOSPICE SERVICES: 1. Unresponsiveness, secondary to massive left middle cerebral artery territorial acute infarct. 2. History of multiple cerebrovascular accidents, with severe right-sided encephalomalacia on imaging studies. 3. Upper respiratory airway collapse, secondary to neurological insult. 4. Sepsis on presentation with MRSA bacteremia. 5. Severe hypernatremia on presentation. 6. [id number] renal failure. 7. Poor prognosis. PRESENTING COMPLAINT: Unresponsiveness. HISTORY OF PRESENTING COMPLAINT: Ms. Florence is a 73-year-old female, who has multiple comorbidities, including multiple CVAs, hypertension, dyslipidemia. The patient was discharged from the hospital services in 05/31/2018, after 6 days' hospital course. At this time, the family brought her because of unresponsiveness at the longterm. Upon presentation, the patient was evaluated, was found to have initial sodium level of 167, that went up to 172. Initially, the thought process was that the altered mentation was due to metabolic derangement. An initial CT scan of the brain was negative for an acute event. Ms. Florence was therefore admitted to the ICU for close management of the hypernatremia. Sodium was rechecked on a regular basis. However, even after normalization, Ms. Florence's mentation did not improve. It actually continued to worsen. Neurology was consulted, and the patient was seen on multiple occasions by Dr. Pham. During the hospital course, it was also noted that blood culture became positive for MRSA, so she was on broad-spectrum antibiotics, thus further repeat blood culture was negative. Her mentation continues to be poor. An MRI of the brain was subsequently ordered, which revealed a massive left-side MCA territorial infarct. Ms. Florence however continues to worsen in terms of mentation. The family decided to make her DNR, and also consult a hospice. The patient was evaluated by [facility], and they deemed that she qualified for inpatient hospice. She was subsequently transferred to hospice services on 06/20/2018. cc: Tramaine Dominguez MD
== END 2018-06-19 12:30 | disposition hospice, inpatient (51) | DRG 64 ==
LOC: SUPCPDRO → ED 12:09 → ICU 16:38 → 3N 06-18 15:43
PROVIDERS: ATTEND Internal Medicine
CPT/HCPCS: 51702; 70450; 70551; 71010; 71045; 74000; 74018; 74176; 76770; 80048; 80053; 80069; 80164; 80165; 81001; 82009; 82550; 82553; 82805; 82948; 83605; 83690; 83735; 83880; 83930; 83935; 84100; 84134; 84300; 84484; 85025; 85610; 87040; 87186; 87275; 87276; 87804; 93005; 93010; 94660; 94761; 94762; 95816; 96365; 96368; 99285; 99291; A9270; J0692; J0712; J0878; J1940; J2060; J2270; J2543; J3370; J7030; J7050; J7070; XXXXX

== ENCOUNTER 2018-06-19 14:01 | Inpatient (IN) ==
[2018-06-19] MEDS ORDERED: ZOFRAN IV PRN (15:42)
[2018-06-19] MEDS ORDERED: TYLENOL PR PRN (15:42)
[2018-06-19] MEDS: MORPHINE IV PRN ×3 (16:33→21:56)
[2018-06-19] MEDS: ATIVAN IV PRN (19:56)
[2018-06-20] MEDS: MORPHINE IV PRN ×7 (00:10→23:46)
[2018-06-20] MEDS: ATIVAN IV PRN ×5 (04:01→23:46)
--- NOTE | 2018-06-20 15:27 | PROGRESS NOTE ---
DATE: 06/20/2018 SUBJECTIVE: This morning Ms. Florence is seen at the bedside. Both daughters were there at the time of the encounter. She continues to be under GIP. OBJECTIVE: Vital Signs: Blood pressure is 68/42, pulse is 111, temperature is 100.1. The patient was saturating 100% on a non-rebreather. General: Ms. Florence is a 73-year-old female. She is in bed. She is not in cardiopulmonary distress. Occasionally she has pauses in her breathing. HEENT: Mucosa is pink and moist. Respiratory: Air entry is bilaterally reduced. There are some crackles posteriorly. Cardiovascular: Tachycardic, but no murmurs. Abdomen: Soft. Central Nervous System: Patient is unresponsive. Pupils are pinpoint and sluggishly reactive. LABORATORY DATA: No lab work for today. ASSESSMENT: 1. Unresponsiveness secondary to massive left MCA territory acute infarct. 2. History of multiple CVAs in the past with severe right-sided encephalomalacia on imaging. 3. Respiratory failure with stridor due to brain insult. 4. Sepsis on presentation with MRSA bacteremia. 5. Severe hypernatremia on presentation, improved. 6. Acute on chronic renal failure. 7. Poor prognosis. 8. Hospice care. So, Ms. Florence continues to be remarkably sick. She seems to be having pauses in her breathing. She is running a temperature which I think is probably central. She is showing every day hemodynamic instability and remarkably more comatose states. She seems to be stable in terms of no pain. We are going to continue with the hospice care. Family members at the bedside and I have discussed the plan with them and all their questions and concerns have been addressed. cc: Tramaine Dominguez MD
[2018-06-20] MEDS ORDERED: ATROPINE 1 % OPHTH SOLN SL PRN (23:05)
[2018-06-21] MEDS: MORPHINE IV PRN ×3 (01:48→06:32)
[2018-06-21] MEDS: ATIVAN IV PRN ×3 (01:48→06:32)
[2018-06-21 08:13] VITALS: BP 46/22
--- NOTE | 2018-06-22 04:45 | DISCHARGE SUMMARY ---
ADMISSION DATE: 06/20/2018 DISCHARGE DATE: 06/21/2018 DATE OF ADMISSION: 06/20/2018. DATE OF DISCHARGE/: 06/21/2018. TIME OF : 1230. ADMISSION DIAGNOSES: 1. Unresponsiveness. 2. Massive left MCA territory infarct. 3. Respiratory failure. 4. Sepsis, with methicillin-resistant Staphylococcus aureus bacteremia. 5. Severe hyponatremia. DIAGNOSES AT THE TIME OF : 1. Upper airway failure, secondary to brain infarction. 2. Unresponsiveness, due to massive left MCA territorial acute infarct. 3. History of multiple cerebrovascular accidents, with severe right-sided encephalomalacia. 4. Sepsis on presentation, with MRSA bacteremia. 5. Severe hypernatremia on presentation. 6. Xycwd-di-[id number] renal failure. 7. Hospice care. HISTORY AND HOSPITAL COURSE: Ms. Florence was admitted initially to the hospital on 06/14/2018, mainly because of unresponsiveness. Upon presentation, the patient was evaluated, and admitted initially to the ICU. However, throughout the hospital course, Ms. 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 An MRI was ordered, which revealed a massive left MCA territorial infarct. The patient continues to be unresponsive. The family member decided to make her DNR and comfort care. Hospice was consulted, and the patient was transitioned to comfort care. The patient was under hospice care from 06/20/2018. Unfortunately, this afternoon she was found with no pulse, no respiratory efforts, no heartbeat, and no signs of cortical or subcortical activity. Ms. Florence's pupils were blown, and they were unresponsive. She was unresponsive to any painful stimulation. She was actually in rigor mortis at the time that I had gone in to evaluate her. She was subsequently pronounced on 06/21/2018 at 12:30 p.m. cc: Tramaine Dominguez MD
== END 2018-06-21 13:55 | disposition expired | DRG 64 ==
LOC: 3N 15:13
PROVIDERS: ATTEND Internal Medicine
CPT/HCPCS: 94761; A9270; J2060; J2270